=== PATIENT | female | born 1950 | race Caucasian/White ===

== ENCOUNTER 2022-07-27 11:09 | Outpatient (CLI) | payer MEDICARE, SELFPAY ==
--- NOTE | ~2022-07-27 | XR_ITS ---
Clinical Indication: Cough PA and lateral views of the chest: Comparison: None Findings: The lungs are clear, without evidence of focal consolidation or pleural effusion. Cardiome diastinal silhouette is within normal limits. Bones and soft tissues are unremarkable. Impression: Normal chest. Reviewed, dictated and finalized at location [] OLL CLERK Impression: Normal chest.
== END 2022-07-27 11:10 | disposition home or self-care (01) ==
LOC: ANHIMG 11:14
PROVIDERS: PCP Family Medicine; Visit Provider Physician Assistant
DX: R05.9 Cough, unspecified (principal)
CPT/HCPCS: 71046

== ENCOUNTER 2023-01-11 08:01 | Outpatient (CLI) | payer MEDICARE, SELFPAY ==
--- NOTE | 2023-01-11 08:47 | ECG_ITS ---
Measurements Intervals [place] Rate: 60 P: 62 OR: 163 QRS: 29 QRSD: 84 T: 48 QT: 398 QTc: 398 Interpretive Statements SINUS RHYTHM NO PREVIOUS ECG AVAILABLE FOR COMPARISON Electronically Signed On 01-11-2023 15:26:35 CDT by Anh Boyer M.D.
[2023-01-11 08:56] LABS: Basophils Percent Auto 0.1 % (0.2-1.2); Hematocrit 41.1 % (37.0-47.0); Hemoglobin 13.7 g/dL (12.0-15.0); Immature Granulocyte Absolute 0.04 K/mm3 (0.00-0.031); Immature Granulocyte Percent A 0.4 % (0-0.5); Lymphocytes Absolute Auto 1.59 K/mm3 (0.9-3.2); Lymphocytes Percent Auto 14.3 % (18.3-44.2); Mean Corpuscular HGB Conc 33.3 g/dl (32-36); Mean Corpuscular Hemoglobin 30.3 pg (26-34); Mean Corpuscular Volume 90.9 fl (80-100); Mean Platelet Volume 11.2 fl (7.4-10.4); Monocytes Absolute Auto 0.4 K/mm3 (0.1-0.6); Monocytes Percent Auto 3.7 % (2.6-8.5); Neutrophils Absolute Auto 9.1 K/mm3 (1.3-6.7); Neutrophils Percent Auto 81.5 % (45.5-73.1); Platelet Count Result 277 k/mm3 (150-375); Red Blood Count 4.52 M/mm3 (4.2-5.4); White Blood Count 11.1 K/mm3 (4.5-10.0)
[2023-01-11 09:06] LABS: Alanine Aminotransferase 21 U/L (6-35); Albumin Level 4.7 g/dL (3.5-5.1); Alkaline Phosphatase 62 U/L (38-126); Anion Gap 11 mmol/L (8-16); Aspartate Amino Transferase 24 U/L (14-36); Bilirubin,Total 0.9 mg/dL (0.2-1.3); Blood Urea Nitrogen 21 mg/dL (7-17); Calcium 9.5 mg/dL (8.4-10.2); Carbon Dioxide 20 mmol/L (22-30); Chloride 107 mmol/L (98-107); Estimated Glomerular Filt Rate > 60; Glucose 121 mg/dL (65-110); Potassium 4.3 mmol/L (3.4-5.0); Sodium 138 mmol/L (137-145)
[2023-01-11 09:23] LABS: Erythrocyte Sedimentation Rate 16 mm/hr (0-20)
[2023-01-11 09:35] LABS: Rheumatoid Factor < 12.0 IU/ML (<12)
[2023-01-11 09:42] LABS: Vitamin D 25 Hydroxy 37.4 ng/mL
[2023-01-11 16:43] LABS: Appearance Urine Clear (Clear); Bacteria Urine Rare /hpf; Bilirubin Urine Negative (Negative); Blood Urine Negative (Negative); Calcium Oxalate Crystals Urine Present /hpf; Color Urine Dark Yellow (Yellow); Glucose Urine UA Negative (Negative); Ketones Urine Trace mg/dL (Negative); Leukocyte Esterase Ur Trace LEU/UL (Negative); Nitrate Urine Negative (Negative); Non Pathogenic Casts 0-2; Protein Urine Negative (Negative); RBC Urine 0-2 /hpf (0-2); Specific Grav Ur 1.027 (1.001-1.035); Squamous Epithelial Cell Urine Occasional /hpf (Few); WBC Urine 0-5 /hpf
[2023-01-11 16:49] LABS: Add Urine Microscopic? YES
[2023-01-15 11:45] LABS: SS-A <1.0; SS-B <1.0
[2023-01-16 14:24] LABS: ANA Pattern Nuclear, Nucleolar; Anti Nuclear Antibody Titer 1:40 (Negative)
== END 2023-01-11 08:02 | disposition home or self-care (01) ==
PROVIDERS: PCP Family Medicine; Visit Provider Family Medicine
DX: Z01.818 Encounter for other preprocedural examination (principal); R09.1 Pleurisy; E55.9 Vitamin D deficiency, unspecified; N18.30 Chronic kidney disease, stage 3 unspecified; R53.83 Other fatigue; E78.5 Hyperlipidemia, unspecified; Z82.49 Family history of ischemic heart disease and other diseases of the circulatory system
CPT/HCPCS: 36415; 80053; 81001; 82306; 85025; 85652; 86038; 86039; 86235; 86430; 93005

== ENCOUNTER 2023-04-09 10:52 | Outpatient (CLI) | payer MEDICARE, SELFPAY ==
[2023-04-09 12:47] LABS: SARS-CoV-2 RNA PCR Negative (Negative)
== END 2023-04-09 10:53 | disposition home or self-care (01) ==
PROVIDERS: PCP Family Medicine; Visit Provider Family Medicine
DX: R50.9 Fever, unspecified (principal)
CPT/HCPCS: 87635

== ENCOUNTER 2023-04-17 13:57 | Outpatient (CLI) | payer MEDICARE, SELFPAY ==
--- NOTE | ~2023-04-17 | CT_ITS ---
EXAMINATION: CT abdomen pelvis w con INDICATION: Unspecified abdominal pain TECHNIQUE: Computed tomographic images of the abdomen and pelvis were obtained after the administrati on of 100 cc of Omnipaque 350 intravenous contrast. The dose-length product (DLP) was 362.92 mGy-cm. Automated exposure control and iterative reconstruction technique were employed. COMPARISON: Chest radiograph dated 07/27/2022 FINDINGS: There are multiple clustered nodules of the visualized lung bases. There are areas of bronc hial wall thickening. The heart size is normal. There are innumerable cysts of the liver which measur e up to 4.2 cm. The spleen, pancreas, gallbladder, and adrenal glands are normal. The kidneys are unr emarkable. No pathologically enlarged abdominal or pelvic lymph nodes are identified. No free intrape ritoneal gas or evidence of bowel obstruction. The appendix is normal. There is mild lumbar spondylos is. IMPRESSION: 1. No CT correlate for the patient's symptoms. 2. Multiple nodules of the visualized lung bases and bronchial wall thickening, most consistent with chronic infection. Reviewed, dictated and finalized at location L.
== END 2023-04-17 13:58 | disposition home or self-care (01) ==
PROVIDERS: PCP Family Medicine; Visit Provider Physician Assistant Medical
DX: R10.9 Unspecified abdominal pain (principal); R91.8 Other nonspecific abnormal finding of lung field
CPT/HCPCS: 74177; Q9967

== ENCOUNTER 2023-05-14 09:59 | Outpatient (CLI) | payer MEDICARE, SELFPAY ==
--- NOTE | ~2023-05-14 | CT_ITS ---
EXAMINATION: CT diagnostic chest wo con DATE: 05/14/2023 10:34 INDICATION: Solitary pulmonary nodule TECHNIQUE: Computed tomography (CT) of the chest was performed without intravenous contrast. Automate d exposure control and iterative reconstruction technique were employed. Exam dose: 79.06 mGy-cm tot al exam DLP. COMPARISON: 07/27/2022 PA and lateral chest 04/17/2022 CT abdomen pelvis FINDINGS: There are extensive nodular pulmonary densities involving primarily the lower lobes, more n umerous on the left, particularly in the dependent lung richard, many with very high attenuation. There are scattered areas of focal scarring including the anteromedial middle lobe and lingula, anter olateral base of the right lower lobe. There is little interval change since 04/17/2023. Otherwise no pulmonary consolidation is noted. Normal heart size. Coronary artery calcification. Thoracic aortic diameter is within normal range. Mi nimal thoracic aortic calcification. No hilar or mediastinal mass lesion or lymphadenopathy is detected. Numerous cysts are scattered throughout the liver. Normal adrenal glands. Included skeletal structures are unremarkable, without evidence of osteolytic or osteoblastic lesions . IMPRESSION: Extensive bilateral pulmonary nodular densities involving primarily the lower lobes, lef t greater than right, many with calcification, suggesting infectious process, old granulomatous disea se Multifocal pulmonary scarring Numerous hepatic cysts Coronary artery disease Reviewed, dictated and finalized at Location A. Reviewed, dictated and finalized at location B. IMPRESSION: Extensive bilateral pulmonary nodular densities involving primaril y the lower lobes, left greater than right, many with calcification, suggesting infectious process, old granulomatous disease Multifocal pulmonary scarring Numerous hepatic cysts Coronary artery disease
== END 2023-05-14 10:00 | disposition home or self-care (01) ==
PROVIDERS: PCP Family Medicine; Visit Provider Physician Assistant
DX: R91.1 Solitary pulmonary nodule (principal); J47.9 Bronchiectasis, uncomplicated; I25.10 Atherosclerotic heart disease of native coronary artery without angina pectoris; R91.8 Other nonspecific abnormal finding of lung field; J98.4 Other disorders of lung; K76.89 Other specified diseases of liver
CPT/HCPCS: 71250

== ENCOUNTER 2023-05-30 08:46 | Outpatient (CLI) | payer MEDICARE, SELFPAY ==
--- NOTE | 2023-06-15 17:52 | WPDSLEEPSTUD ---
Sleep Study Date of Study: 05/30/23 Ordering Provider: JAUN Garcia Interpreting Physician: Safia Echeverria MD Sleep Study Type: Polysomnogram Height: 1.65 m Weight: 67.132 kg Body Mass Index: 24.6 Neck Circumference (inches): 14 Pinson: 6 Reason for Sleep Study Hypersomnolence; this was performed with a REM Behavior Montage as the patient reported to the video technician that she possibly acts out her dreams Sleep History Miguelina Cowan is a 72-year-old woman with hypersomnolence. She rarely awakens from sleep short of breath. She occasionally wakes at night with heartburn, belching or coughing.??She frequently snores, and frequently snores loudly enough that others complain. She occasionally has trouble sleeping when she has a cold. She never wakes up gasping for breath during the night. She occasionally has breathing problems at night. She rarely sweats excessively at night. She rarely notices her heart pounding or beating irregularly during the night. She rarely falls asleep during the day. She never falls asleep involuntarily, never falls asleep while driving. She never experiences loss of muscle tone with strong emotion. She never feels paralyzed on waking or falling asleep. She rarely experiences vivid dreams upon waking or falling asleep. She feels afraid of going to sleep. She occasionally has nightmares. She rarely recalls her dreams. She rarely has thoughts racing through her mind. She rarely feels sad or depressed. She rarely feels anxiety. She rarely notices parts of her body jerk. She occasionally kicks during the night. She rarely feels crawling or aching feelings in her legs. She rarely feels leg pain at night. She rarely has morning jaw pain, and occasionally grinds her teeth at night. She rarely feels bothered by pain during the day, rarely awakened by pain during the night. She rarely wakes up feeling stiff in the morning, rarely wakes feeling sore or achy in the morning. She occasionally awakens with pain in her neck, spine, or joints. She takes antacids regularly. Normal bedtime is be to wean 10:30 p.m. and 11:00 p.m., falling asleep within 10 minutes. She wakes up between 2 and 3 times during the night. during these awakenings, she may go to the bathroom. It takes her about 5 minutes to return to sleep. She reports getting Between 8 and 9 hours of sleep per night. Her wake time is 8:00 a.m. She keeps the same schedule on weekends. she rarely takes naps. A short nap lasting 10-15 minutes may be refreshing. She feels good most mornings when she awakens. Habits:??Tobacco: Never Caffeine: 2-3 cups a day. Alcohol: once a week Recreational substances: none PMFSH Past Medical History Medical History Anxiety Bladder infection Chronic renal insufficiency, stage III (moderate) Endometriosis HLD (hyperlipidemia) Pneumonia (~2017) Vitamin D deficiency Wears hearing aid in both ears Surgical History Surgical History History of section x 2 History of laparoscopy History of third molar tooth extraction History of total abdominal hysterectomy Family History Family History Mother Hypertension CHF (congestive heart failure) Father CHF (congestive heart failure) Grandparent Carcinoma of colon Social History Social History Smoking status: Never smoker Second hand tobacco smoke exposure: No Alcohol intake: never Substance use: never Substance use type: does not use Lack of Transportation: No Lack of Food: Never True Current Housing: I Have Housing Concerned About Future Housing: No Difficulty Paying Gas/Electric Bills: No Difficulty Paying for Meds: No Currently Unemployed: No Education: Decline to Answer Diffic
[2023-06-18 08:47] VITALS: BMI 24.6
== END 2023-05-31 07:01 | disposition home or self-care (01) ==
PROVIDERS: PCP Family Medicine; Visit Provider Physician Assistant
DX: G47.10 Hypersomnia, unspecified (principal)
CPT/HCPCS: 95810

== ENCOUNTER 2023-06-22 09:16 | Outpatient (CLI) | payer MEDICARE, SELFPAY ==
[2023-06-22 10:45] LABS: Basophils Absolute Auto 0.1 K/mm3 (0.0-0.1); Basophils Percent Auto 1.3 % (0.2-1.2); Eosinophils Absolute Auto 0.3 K/mm3 (0-0.3); Eosinophils Percent Auto 4.4 % (0-4.4); Hematocrit 39.4 % (37.0-47.0); Hemoglobin 12.7 g/dL (12.0-15.0); Immature Granulocyte Absolute 0.02 K/mm3 (0.00-0.031); Immature Granulocyte Percent A 0.3 % (0-0.5); Lymphocytes Absolute Auto 2.14 K/mm3 (0.9-3.2); Lymphocytes Percent Auto 31.1 % (18.3-44.2); Mean Corpuscular HGB Conc 32.2 g/dl (32-36); Mean Corpuscular Hemoglobin 29.7 pg (26-34); Mean Corpuscular Volume 92.3 fl (80-100); Mean Platelet Volume 11.2 fl (7.4-10.4); Monocytes Absolute Auto 0.4 K/mm3 (0.1-0.6); Monocytes Percent Auto 6.1 % (2.6-8.5); Neutrophils Absolute Auto 3.9 K/mm3 (1.3-6.7); Neutrophils Percent Auto 56.8 % (45.5-73.1); Platelet Count Result 271 k/mm3 (150-375); Red Blood Count 4.27 M/mm3 (4.2-5.4); Red Cell Distribution Width 13.3 % (11.5-14.5); White Blood Count 6.9 K/mm3 (4.5-10.0)
[2023-06-22 11:13] LABS: Immunoglobulin A 206 mg/dL (70-400); Immunoglobulin M 55 mg/dL (40-230)
[2023-06-22 11:21] LABS: Free T4 Free Thyroxine 1.14 ng/mL (0.78-2.19)
[2023-06-25 21:25] LABS: Anti Cyclic Citrullinated Pept <16 Units (<20)
[2023-06-27 02:25] LABS: ANA Cascade Screen Negative (Negative)
[2023-06-27 03:43] LABS: ANCA Screen Negative (Negative)
[2023-06-27 14:28] LABS: NIL 0.04 IU/mL; Quantiferon TB Plus, 1T NEGATIVE (NEGATIVE); TB2-NIL 0.11 IU/mL
[2023-06-27 20:07] LABS: Aspergillus Fumigatus K/UL <0.10 (<0.10); Conventional Class 0 (0)
[2023-06-27 20:09] LABS: Immunoglobulin E 116 kU/L (<=114)
== END 2023-06-22 09:17 | disposition home or self-care (01) ==
PROVIDERS: PCP Family Medicine; Visit Provider Internal Medicine Pulmonary Disease
DX: J84.9 Interstitial pulmonary disease, unspecified (principal); J44.9 Chronic obstructive pulmonary disease, unspecified; J47.9 Bronchiectasis, uncomplicated; R06.09 Other forms of dyspnea; G47.10 Hypersomnia, unspecified
CPT/HCPCS: 36415; 82784; 82785; 84439; 84443; 85025; 86003; 86036; 86038; 86200; 86225; 86235; 86331; 86364; 86480; 86606; 86609

== ENCOUNTER 2023-06-25 09:43 | Outpatient (CLI) | payer MEDICARE, SELFPAY ==
--- NOTE | 2023-06-25 12:22 | WPDSIXMINUTE ---
Six Minute Walk Procedure Procedure Performed Pulmonary Stress Test (6 min walk) Six Minute Walk Six Minute Walk: This is a 6 minute walk test. The test was performed and interpreted in accordance with the 2014 ERS/ATS task force guidelines. Findings: The patient's resting room air oxygen saturation measured by pulse oximetry was 95% and heart rate was 71 bpm. Patient ambulated for 366 meters and oxygen saturation remained 93 to 95%. Heart rate at the end of the study was 100 bpm. The patient did not qualify for supplemental oxygen at rest or with ambulation. There are no prior studies for comparison.
--- NOTE | 2023-06-25 12:22 | WPDPFTINT ---
PFT Procedure Performed PFT Procedure Performed Spirometry with Pre/Post Bronchodilator Plethysmography (Lung Vol) Diffusing Cap (DLCO) Flow Vol Loop PFT Interpretation This is a pulmonary function test with pre and post-bronchodilator spirometry, plethysmography and diffusing capacity. The test was performed and results interpreted in accordance with the 2019 and 2005 ATS/ERS Task Force guidelines respectively using the Global Lung Function Initiative-2012 reference equations. Patient demonstrated good effort and cooperation. Reproducibility criteria were met. The quality of the pre bronchodilator spirometry maneuver was Grade A and post bronchodilator spirometry maneuver was Grade A. Findings: Spirometry: The contour the inspiratory and expiratory flow tracing are normal. The pre bronchodilator FVC is 2.66 L, 87% predicted. The pre bronchodilator FEV1 is 2.08 L, 88% predicted. The pre bronchodilator FEV1: FVC ratio 78%. The post bronchodilator FVC is 2.85 L, representing a 7% increase. The post bronchodilator FEV1 is 2.22 L, representing a 6% increase. The post bronchodilator FEV1: FVC ratio 78%. Plethysmography: The total lung capacity is 5.63 L, 105% predicted. The functional residual capacity is 3.82 L, 124% predicted. The residual volume is 2.97 L, 129% predicted. Diffusing capacity: The diffusing capacity unadjusted for hemoglobin and carboxyhemoglobin is 14.9, 70% predicted. The diffusing capacity adjusted for alveolar volume is 3.66, 87% predicted. Impression: The spirometry is normal without evidence of an obstructive abnormality. There is no significant improvement after inhaling a single dose of albuterol. The lung volumes are normal. The diffusing capacity is normal. There are no prior studies for comparison
== END 2023-06-25 09:44 | disposition home or self-care (01) ==
PROVIDERS: PCP Family Medicine; Visit Provider Internal Medicine Pulmonary Disease
DX: J47.9 Bronchiectasis, uncomplicated (principal)
CPT/HCPCS: 94060; 94618; 94726; 94729

== ENCOUNTER 2023-08-03 07:43 | Outpatient (CLI) | payer MEDICARE, SELFPAY ==
--- NOTE | ~2023-08-03 | XR_ITS ---
Left foot Technique: AP, oblique, and lateral views were obtained. Clinical History: Pain Findings: No acute fracture or dislocation is seen. Osseous alignment is anatomic. Joint spaces are p reserved without erosive or degenerative change. Soft tissues are unremarkable. Impression: Unremarkable left foot radiographs. Reviewed, dictated and finalized at location . LOPMENT LEAD Impression: Unremarkable left foot radiographs.
--- NOTE | ~2023-08-03 | XR_ITS ---
Bilateral Hands Technique: Bilateral PA, oblique, and lateral views, and ball-catcher's view were obtained. Clinical History: Chronic arthritis Findings: No acute fracture or dislocation is seen. Osseous alignment is anatomic and there are minim al scattered degenerative changes in the bilateral interphalangeal joints and at the right first MCP joint.. Soft tissues are unremarkable. Impression: Minimal scattered degenerative changes, as above. Reviewed, dictated and finalized at location M. SCOPE TECHNICIAN Impression: Minimal scattered degenerative changes, as above.
--- NOTE | ~2023-08-03 | XR_ITS ---
Right foot Technique: AP, oblique, and lateral views were obtained. Clinical History: Pain Findings: No acute fracture or dislocation is seen. There is presumed prior osteotomy of the first me tatarsal with 2 orthopedic screws present. Hallux valgus noted. Joint spaces are preserved without er osive or degenerative change. Soft tissues are unremarkable. Impression: No acute abnormality. Presumed prior osteotomy of the first metatarsal, with 2 orthopedic screws present. Correlate with mn dical history. Hallux valgus. Reviewed, dictated and finalized at location M. OCK TESTER Impression: No acute abnormality. Presumed prior osteotomy of the first metatarsal, with 2 orthopedic screws pres ent. Correlate with medical history. Hallux valgus.
--- NOTE | ~2023-08-03 | XR_ITS ---
Thoracic spine: Clinical Indication: Back pain AP and lateral views were performed. No fracture is seen. There is normal alignment of the vertebrae. The intervertebral disc spaces appe ar normal. Paravertebral soft tissues appear normal. Impression: No significant abnormalities noted. Reviewed, dictated and finalized at [facility]. TING ROLLER POLISHER Impression: No significant abnormalities noted.
--- NOTE | ~2023-08-03 | XR_ITS ---
Cervical Spine: AP, lateral, open-mouth views Clinical History: Pain Findings: There is mild reversal of the normal cervical lordosis. No fracture seen. There is 3 mm ant erolisthesis of C3 over C4. There is 2 mm retrolisthesis of C5 over C6. There is advanced degenerativ e disc narrowing at C5-C6. There is moderate degenerative disc narrowing at C6-C7. Pre-vertebral soft tissues are unremarkable. Impression: 3 mm anterolisthesis of C3 over C4. 2 mm retrolisthesis of C5 over C6. Degenerative disc changes C5-C6 and C6-C7, as detailed above. Reviewed, dictated and finalized at location M. K SALES REPRESENTATIVE Impression: 3 mm anterolisthesis of C3 over C4. 2 mm retrolisthesis of C5 over C6. Degenerative disc changes C5-C6 and C6-C7, as detailed above.
[2023-08-03 08:23] LABS: Alanine Aminotransferase 17 U/L (6-35); Albumin Level 4.3 g/dL (3.5-5.1); Alkaline Phosphatase 71 U/L (38-126); Anion Gap 8 mmol/L (8-16); Aspartate Amino Transferase 26 U/L (14-36); Bilirubin,Total 0.9 mg/dL (0.2-1.3); Blood Urea Nitrogen 20 mg/dL (7-17); Calcium 9.4 mg/dL (8.4-10.2); Carbon Dioxide 26 mmol/L (22-30); Chloride 107 mmol/L (98-107); Cholesterol 234 mg/dL (0-200); Estimated Glomerular Filt Rate 55; Glucose 88 mg/dL (65-110); HDL Direct 74 mg/dL; Sodium 141 mmol/L (137-145); Triglycerides 127 mg/dL (<150)
[2023-08-03 08:34] LABS: LDL Cholesterol Direct 106 mg/dL
[2023-08-03 09:32] LABS: Hemoglobin A1C 5.6 % (<5.7)
== END 2023-08-03 07:44 | disposition home or self-care (01) ==
LOC: ANHLAB 07:47
PROVIDERS: PCP Family Medicine; Visit Provider Family Medicine
DX: M54.9 Dorsalgia, unspecified (principal); M43.12 Spondylolisthesis, cervical region; M50.322 Other cervical disc degeneration at C5-C6 level; M50.323 Other cervical disc degeneration at C6-C7 level; M20.11 Hallux valgus (acquired), right foot; M19.042 Primary osteoarthritis, left hand; M19.041 Primary osteoarthritis, right hand; E78.2 Mixed hyperlipidemia; R73.03 Prediabetes; N18.30 Chronic kidney disease, stage 3 unspecified; R76.8 Other specified abnormal immunological findings in serum
CPT/HCPCS: 36415; 72050; 72072; 73130; 73630; 80053; 80061; 83036

== ENCOUNTER 2023-09-12 11:29 | Outpatient (CLI) | payer MEDICARE, SELFPAY ==
--- NOTE | ~2023-09-12 | XR_ITS ---
Clinical Indication: Wheezing, Covid PA and lateral views of the chest: Comparison: 07/27/2022 Findings: The lungs are clear, without evidence of focal consolidation or pleural effusion. Cardiome diastinal silhouette is within normal limits. Bones and soft tissues are unremarkable. Impression: Normal chest. Reviewed, dictated and finalized at [facility]. GER PRODUCE Impression: Normal chest.
== END 2023-09-12 11:30 | disposition home or self-care (01) ==
LOC: ANHLAB 11:32 → ANHIMG 11:32
PROVIDERS: PCP Family Medicine; Visit Provider Physician Assistant Medical
DX: R06.2 Wheezing (principal)
CPT/HCPCS: 71046

== ENCOUNTER 2023-10-01 18:20 | Emergency (ER) | payer MEDICARE, SELFPAY ==
--- NOTE | ~2023-10-01 | CT_ITS ---
EXAMINATION: CT abdomen pelvis w con DATE: 10/01/2023 23:42 INDICATION: ab pain TECHNIQUE: Computed tomography (CT) of the abdomen and pelvis was performed with 100 mL Omnipaque-350 intravenous contrast. Automated exposure control and iterative reconstruction technique were employe d. The dose-length product was 467.82 mGy-cm. COMPARISON: 04/17/2023. FINDINGS: Lower thorax: Multiple pulmonary nodules, tree-in-bud opacities, centrilobular nodules, bilateral med ial atelectasis/scar, and bronchiectasis in the lung bases. Liver: Innumerable hepatic cysts. Biliary/Gallbladder: Gallbladder is normal. No bile duct dilation. Pancreas: Mild atrophy Spleen: Normal. Adrenals:No mass. Kidneys: No suspicious mass, obstructing stone, or hydronephrosis. GI tract: Mild distal esophageal and gastric wall edema No small or large bowel dilation. Normal appe ndix. Mesentery/Peritoneum: No ascites, mass, or free air. Retroperitoneum: No mass. Atherosclerotic abdominal aortic and/or arterial calcifications. Pelvis: Pelvic organs are within normal limits. Soft Tissues: Soft tissues and body wall unremarkable. Bones: No acute osseous finding. IMPRESSION: Chronic atypical infection in the lung bases. Mild esophagitis/gastritis. Otherwise no acute abdominal pelvic process detected. Reviewed, dictated and finalized at location K. EMS PROGRAM MANAGER
[2023-10-01 18:22] VITALS: BP 155/81; PULSE 77; RESP 20; TEMP 36.4; O2SAT 97
[2023-10-01 23:02] VITALS: BP 138/78; PULSE 70; RESP 20; O2SAT 100
[2023-10-01 23:04] LABS: Basophils Absolute Auto 0.1 K/mm3 (0.0-0.1); Basophils Percent Auto 1.4 % (0.2-1.2); Eosinophils Absolute Auto 0.1 K/mm3 (0-0.3); Eosinophils Percent Auto 1.2 % (0-4.4); Hematocrit 39.2 % (37.0-47.0); Hemoglobin 12.4 g/dL (12.0-15.0); Immature Granulocyte Absolute 0.02 K/mm3 (0.00-0.031); Immature Granulocyte Percent A 0.2 % (0-0.5); Lymphocytes Absolute Auto 2.07 K/mm3 (0.9-3.2); Lymphocytes Percent Auto 24.5 % (18.3-44.2); Mean Corpuscular HGB Conc 31.6 g/dl (32-36); Mean Corpuscular Hemoglobin 28.5 pg (26-34); Mean Corpuscular Volume 90.1 fl (80-100); Mean Platelet Volume 10.9 fl (7.4-10.4); Monocytes Absolute Auto 0.6 K/mm3 (0.1-0.6); Monocytes Percent Auto 6.8 % (2.6-8.5); Neutrophils Absolute Auto 5.6 K/mm3 (1.3-6.7); Neutrophils Percent Auto 65.9 % (45.5-73.1); Platelet Count Result 289 k/mm3 (150-375); Red Blood Count 4.35 M/mm3 (4.2-5.4); Red Cell Distribution Width 13.8 % (11.5-14.5); White Blood Count 8.4 K/mm3 (4.5-10.0)
[2023-10-01 23:14] LABS: Alanine Aminotransferase 21 U/L (6-35); Albumin Level 4.3 g/dL (3.5-5.1); Alkaline Phosphatase 69 U/L (38-126); Anion Gap 6 mmol/L (8-16); Aspartate Amino Transferase 36 U/L (14-36); Blood Urea Nitrogen 26 mg/dL (7-17); Calcium 9.6 mg/dL (8.4-10.2); Carbon Dioxide 23 mmol/L (22-30); Chloride 108 mmol/L (98-107); Estimated CRCL calculation 34 ml/min; Estimated Glomerular Filt Rate 40; Glucose 102 mg/dL (65-110); Lipase 139 U/L (23-300); Potassium 3.9 mmol/L (3.4-5.0); Sodium 137 mmol/L (137-145)
--- NOTE | 2023-10-02 00:09 | ED.ABDPAIN ---
HPI - Abdominal Pain General Chief Complaint: Abdominal Pain Stated Complaint: abd pain Time Seen by Provider: 10/01/23 22:58 History of Present Illness HPI narrative: 72-year-old female history of GERD presented to the emergency department for evaluation of upper abdominal burning has been ongoing for the last week. Patient days take Tums but states she had no improvement with this. Patient does have history of lupus and does take hydroxychloroquine. Related Data Allergies Allergy/AdvReac Type Severity Reaction Status Date / Time latex Allergy Mild Rash Verified 10/01/23 18:21 levofloxacin [From Levaquin] Allergy Mild Unknown Verified 10/01/23 18:21 Review of Systems Review of Systems: All systems reviewed & are unremarkable except as noted in HPI and below PMFSH Past Medical History Medical History Anxiety Bladder infection Chronic renal insufficiency, stage III (moderate) Endometriosis HLD (hyperlipidemia) Pneumonia (~2017) Undifferentiated connective tissue disease Vitamin D deficiency Wears hearing aid in both ears Surgical History Surgical History History of section x 2 History of laparoscopy History of third molar tooth extraction History of total abdominal hysterectomy Family History Family History Mother Hypertension CHF (congestive heart failure) Father CHF (congestive heart failure) Grandparent Carcinoma of colon Social History Social History Smoking status: Never smoker Second hand tobacco smoke exposure: No Alcohol intake: never Substance use: never Substance use type: does not use Lack of Transportation: No Lack of Food: Never True Current Housing: I Have Housing Concerned About Future Housing: No Difficulty Paying Gas/Electric Bills: No Difficulty Paying for Meds: No Currently Unemployed: No Education: Decline to Answer Difficulty w/ Childcare or Family Care: No Living arrangements: with family Occupation/Education: retired Gender identity (if verbalized by the patient): Female Spiritual care concerns: No Agree to blood products: Yes Exam Narrative: APPEARANCE: Well appearing, no pain, no distress, well-nourished. HEAD: normocephalic, atraumatic. EYES: PERRLA/EOMI, conjunctivae clear. NOSE: Normal no drainage EARS:TMS clear with good light reflex. THROAT: Pharynx clear, no exudate. NECK: Supple. No adenopathy, no masses. RESPIRATORY: Airway patent, respirations nonlabored. Clear to auscultation bilaterally, no rales, rhonchi, wheezing. CARDIOVASCULAR: Regular rate and rhythm without murmurs rubs or gallops. ABDOMINAL: epigastric tenderness to palpation MUSCULOSKELETAL: Moves all extremities. Strength/ROM intact, No edema, No calf tenderness. NEURO: Alert. Cranial nerves II through XII intact. grossly intact Course Course Emergency Course: 72-year-old female presents to the emergency department for evaluation of epigastric pain. Patient did have reproducible epigastric tenderness to palpation. Patient is afebrile with no leukocytosis and a stable hemoglobin of 12.4. Patient has no acute abnormalities on her CMP other than a mildly elevated creatinine. Patient has no elevation in T bili AST ALT or alk-phos. Patient's lipase was normal. CT scan did show evidence of esophagitis/gastritis. Patient was treated with GI cocktail And IV fluids. Patient reported only mild improvement with GI cocktail. UA did have 11-20 whites with no bacteria and no nitrates, urine culture was ordered. CT scan showed a chronic infection of the lower lung bases, gastritis/ esophagitis but no other acute findings. Vital Signs Vital signs: Vital Signs Temperature 97.5 F L 10/01/23 18
[2023-10-02] MEDS: SODIUM CHLORIDE 0.9% IV 1,000 ML 999 ML IV CONT (00:32)
[2023-10-02] MEDS: BELLADONNA ALK/PHENOB ELIX 10 ML, MAG HYDROX/ALUMINUM HYD/SIMETH 30 ML, LIDOCAINE HCL 2... PO (00:33)
[2023-10-02 00:40] VITALS: PULSE 78; RESP 15; O2SAT 98
[2023-10-02 01:07] LABS: Appearance Urine Cloudy (Clear); Bacteria Urine None Seen /hpf; Bilirubin Urine Negative (Negative); Blood Urine Negative (Negative); Color Urine Dark Yellow (Yellow); Glucose Urine UA Negative (Negative); Hyaline Casts Urine Present /lpf; Ketones Urine 2+ mg/dL (Negative); Leukocyte Esterase Ur Negative LEU/UL (Negative); Mucus Urine Present /lpf; Need Manual Microscopic Reviewed; Nitrate Urine Negative (Negative); Non Pathogenic Casts >20; Protein Urine Trace mg/dL (Negative); RBC Urine 0-2 /hpf (0-2); Specific Grav Ur 1.042 (1.001-1.035); Squamous Epithelial Cell Urine Moderate /hpf (Few)
[2023-10-02 01:08] LABS: Add Urine Microscopic? YES
== END 2023-10-02 01:38 | disposition home or self-care (01) ==
PROVIDERS: Emergency Provider Emergency Medicine; PCP Family Medicine
DX: R10.13 Epigastric pain (principal); N18.30 Chronic kidney disease, stage 3 unspecified; E78.5 Hyperlipidemia, unspecified; E55.9 Vitamin D deficiency, unspecified; Z87.01 Personal history of pneumonia (recurrent); Z87.440 Personal history of urinary (tract) infections; Z90.710 Acquired absence of both cervix and uterus; K29.70 Gastritis, unspecified, without bleeding; K20.90 Esophagitis, unspecified without bleeding
CPT/HCPCS: 36415; 74177; 80053; 81001; 83690; 85025; 87077; 87086; 87186; 96360; 99284; A9270; J7030; Q9967

== ENCOUNTER 2023-10-23 01:02 | Day surgery (SDC) | payer MEDICARE, SELFPAY ==
[2023-10-10 11:34] VITALS: BMI 24.2
--- NOTE | 2023-10-19 10:02 | SUR.PREOP ---
Patient called regarding upcoming procedure. Reviewed preop instructions, appointment times, and procedure prep.
[2023-10-23 06:20] VITALS: BP 111/75; PULSE 72; TEMP 36.4; O2SAT 100; BMI 22.8
[2023-10-23] MEDS: LACTATED RINGERS 1,000 ML 150 ML IV CONT (06:24)
--- NOTE | 2023-10-23 07:03 | WPDANESEPPF ---
Anes - Initial Pre Proc Eval Procedure: Operation Date: 10/23/23 07:30 Proposed Procedures p Esophagogastroduodenoscopy & Screening Colonoscopy - Roberth Lopez MD Date/Time: 10/23/23 07:03 Surgeon: Roberth Lopez MD Pre Op Diagnosis: neoplasm screening,Gastritis,Esophagitis Patient Data Age: 73 Gender: F Height: 1.68 m Weight: 64.4 kg Last Vital Signs Temp 36.4 C L 10/23/23 06:20 Pulse 72 10/23/23 06:20 BP 111/75 10/23/23 06:20 Pulse Ox 100 10/23/23 06:20 O2 Del Method Room Air 10/23/23 06:20 Allergies Allergy/AdvReac Type Severity Reaction Status Date / Time latex Allergy Mild Rash Verified 10/23/23 06:19 levofloxacin [From Levaquin] Allergy Mild Unknown Verified 10/23/23 06:19 hydroxychloroquine AdvReac Other Verified 10/23/23 06:19 Home Medications Medication Instructions Recorded Confirmed Type ergocalciferol (vitamin D2) 1,250 1,250 mcg PO WEEKLY #12 caps 09/29/22 10/10/23 Rx mcg (50,000 unit) capsule valacyclovir 500 mg tablet 250 mg PO DAILY #90 tabs 01/28/23 10/10/23 Rx omeprazole 40 mg capsule,delayed 40 mg PO DAILY #30 caps 05/30/23 10/10/23 Rx release Patient hx anesthesia problems: none Family hx anesthesia problems: none Results Review: All pre-operative results and documents have been reviewed as part of the pre-operative evaluation. [facility] Past Medical History Medical History (Updated 10/23/23 @ 07:04 by Tyrone Gary DO) Anxiety Bladder infection Chronic renal insufficiency, stage III (moderate) Endometriosis HLD (hyperlipidemia) Pneumonia (~2017) Rheumatoid arthritis SLE (systemic lupus erythematosus related syndrome) Undifferentiated connective tissue disease Vitamin D deficiency Wears hearing aid in both ears Surgical History Surgical History History of section x 2 History of laparoscopy History of third molar tooth extraction History of total abdominal hysterectomy Family History Family History Mother Hypertension CHF (congestive heart failure) Father CHF (congestive heart failure) Grandparent Carcinoma of colon Social History Social History Smoking status: Never smoker Second hand tobacco smoke exposure: No Alcohol intake: never Substance use: never Substance use type: does not use Lack of Transportation: No Lack of Food: Never True Current Housing: I Have Housing Concerned About Future Housing: No Difficulty Paying Gas/Electric Bills: No Difficulty Paying for Meds: No Currently Unemployed: No Education: Decline to Answer Difficulty w/ Childcare or Family Care: No Living arrangements: with family Additional living arrangements comments: [place]- [phone] Occupation/Education: retired Gender identity (if verbalized by the patient): Female Spiritual care concerns: No Agree to blood products: Yes Anes - Eval Final PreProcedure Day of Procedure 10/23/23 07:03 Patient weight: normal Heart: regular rate and rhythm Lungs: clear to auscultation and normal air movement Airway: Mallampati scale class II Neurological: alert and oriented Last oral intake: >/= 8 hours ASA classification: III Emergent: no Anesthetic plan: proceed Anesthesia type and monitoring: general GIVS and standard monitoring Results Review: All pre-operative results and documents have been reviewed as part of the pre-operative evaluation. Informed Consent: The patient's anesthetic plan and its attendant risks and benefits were discussed with the patient/family/POA. Questions were solicited and answers provided to the satisfaction of the patient/family/POA.
--- NOTE | 2023-10-23 07:24 | PM.HPGS ---
History of Present Illness History of Present Illness Consent: Risks, benefits, and alternatives have been discussed and questions answered. Patient agrees to proceed with procedure. Chief complaint: neoplasm screening,Gastritis,Esophagitis Narrative: Miguelina Cowan is a 73 year old female here with burning sensation, she had CT scan that showed Mild esophagitis/gastritis, better now with omeprazole. Never had EGD, last colonoscopy more than 10 years ago Review of Systems Review of Systems: All systems reviewed & are unremarkable except as noted in HPI and below PMFSH Past Medical History Medical History (Updated 10/23/23 @ 07:26 by Roberth Lopez MD) Anxiety Bladder infection Chronic renal insufficiency, stage III (moderate) Endometriosis GERD (gastroesophageal reflux disease) HLD (hyperlipidemia) Pneumonia (~2017) Rheumatoid arthritis SLE (systemic lupus erythematosus related syndrome) Undifferentiated connective tissue disease Vitamin D deficiency Wears hearing aid in both ears Surgical History Surgical History History of section x 2 History of laparoscopy History of third molar tooth extraction History of total abdominal hysterectomy Family History Family History Mother Hypertension CHF (congestive heart failure) Father CHF (congestive heart failure) Grandparent Carcinoma of colon Social History Social History Smoking status: Never smoker Second hand tobacco smoke exposure: No Alcohol intake: never Substance use: never Substance use type: does not use Lack of Transportation: No Lack of Food: Never True Current Housing: I Have Housing Concerned About Future Housing: No Difficulty Paying Gas/Electric Bills: No Difficulty Paying for Meds: No Currently Unemployed: No Education: Decline to Answer Difficulty w/ Childcare or Family Care: No Living arrangements: with family Additional living arrangements comments: [facility]- [phone] Occupation/Education: retired Gender identity (if verbalized by the patient): Female Spiritual care concerns: No Agree to blood products: Yes Meds Home Medications and Allergies Home Medications Medication Instructions Recorded Confirmed Type ergocalciferol (vitamin D2) 1,250 1,250 mcg PO WEEKLY #12 caps 09/29/22 10/10/23 Rx mcg (50,000 unit) capsule valacyclovir 500 mg tablet 250 mg PO DAILY #90 tabs 01/28/23 10/10/23 Rx omeprazole 40 mg capsule,delayed 40 mg PO DAILY #30 caps 05/30/23 10/10/23 Rx release Allergies Allergy/AdvReac Type Severity Reaction Status Date / Time latex Allergy Mild Rash Verified 10/23/23 06:19 levofloxacin [From Levaquin] Allergy Mild Unknown Verified 10/23/23 06:19 hydroxychloroquine AdvReac Other Verified 10/23/23 06:19 Vital Signs Vital Signs - 24 hr 10/23/23 06:20 Temperature 97.5 F L Pulse Rate 72 Blood Pressure 111/75 Pulse Oximetry 100 Oxygen Delivery Room Air Exam Const: General: comfortable and no acute distress HENMT: Face/Nose/Sinus: Normal nares present Eyes: General: appearance normal, both eyes and all related structures Neck: Neck: no JVD Resp: Auscultation: clear to auscultation bilaterally Cardio: Rate: regular rate Rhythm: regular rhythm GI: Inspection: non-distended GI Palp: Yes Soft to palpation Skin: General skin exam: normal color Neuro: General: gait normal Speech: normal speech Extrem: General: normal to inspection Psych: Mental Status: mental status grossly normal Assessment and Plan Assessment and plan (1) Colon cancer screening: Code(s): Z12.11 - Encounter for screening for malignant neoplasm of colon Status: Acute Assessment and Plan: colonoscopy (2) GERD (gastroesophageal reflux dise
[2023-10-23] MEDS: BENZOCAINE (*SP) 60 ML SPRAY CAN (HURRICAINE) 1 SPRAY MUCOUS MEM (07:32)
--- NOTE | 2023-10-23 07:43 | SUR.OPER ---
EGD: [id number] COLON: Start 739
[2023-10-23 07:51] VITALS: BP 124/74; PULSE 88; RESP 21; O2SAT 100
[2023-10-23 08:01] VITALS: BP 121/65; PULSE 88; RESP 23; O2SAT 100
[2023-10-23 08:11] VITALS: BP 138/74; PULSE 85; RESP 17; O2SAT 100
== END 2023-10-23 08:26 | disposition home or self-care (01) ==
PROVIDERS: PCP Family Medicine; Visit Provider Internal Medicine Gastroenterology
PROC: 0DJ08ZZ Inspection of Upper Intestinal Tract, Via Natural or Artificial Opening Endoscopic (ICD-10-PCS; CPT 43235; principal; 2023-10-23 07:30)
DX: Z12.11 Encounter for screening for malignant neoplasm of colon (principal); K64.8 Other hemorrhoids; K29.50 Unspecified chronic gastritis without bleeding; K21.9 Gastro-esophageal reflux disease without esophagitis; E78.5 Hyperlipidemia, unspecified; E55.9 Vitamin D deficiency, unspecified; F41.9 Anxiety disorder, unspecified; N80.9 Endometriosis, unspecified; N18.30 Chronic kidney disease, stage 3 unspecified; M32.9 Systemic lupus erythematosus, unspecified; Z98.890 Other specified postprocedural states; Z82.49 Family history of ischemic heart disease and other diseases of the circulatory system; Z80.0 Family history of malignant neoplasm of digestive organs
CPT/HCPCS: 43239; G0105; 88305; J1596; J7120

== ENCOUNTER 2023-11-01 12:52 | Outpatient (CLI) | payer MEDICARE, SELFPAY ==
[2023-11-01 14:26] LABS: Alanine Aminotransferase 15 U/L (6-35); Albumin Level 4.2 g/dL (3.5-5.1); Alkaline Phosphatase 59 U/L (38-126); Anion Gap 4 mmol/L (8-16); Aspartate Amino Transferase 25 U/L (14-36); Bilirubin,Total 0.9 mg/dL (0.2-1.3); Blood Urea Nitrogen 23 mg/dL (7-17); Calcium 9.3 mg/dL (8.4-10.2); Carbon Dioxide 24 mmol/L (22-30); Chloride 108 mmol/L (98-107); Estimated Glomerular Filt Rate > 60; Glucose 95 mg/dL (65-110); Potassium 3.6 mmol/L (3.4-5.0); Sodium 136 mmol/L (137-145)
== END 2023-11-01 12:53 | disposition home or self-care (01) ==
LOC: ANHLAB 12:53
PROVIDERS: PCP Family Medicine; Visit Provider Physician Assistant Medical
DX: E78.2 Mixed hyperlipidemia (principal)
CPT/HCPCS: 36415; 80053

== ENCOUNTER 2024-03-07 11:02 | Outpatient (CLI) | payer MEDICARE, SELFPAY ==
--- NOTE | ~2024-03-07 | CT_ITS ---
EXAMINATION: CT sinus wo con DATE: 03/07/2024 11:48 INDICATION: Chronic sinusitis TECHNIQUE: Computed tomography (CT) of the paranasal sinuses was performed without intravenous contra st. The dose-length product was 343.37 mGy-cm. Automated exposure control and iterative reconstructio n technique were employed. COMPARISON: None FINDINGS: There is mucosal thickening of the ethmoid, sphenoid and maxillary sinuses. No air-fluid le vels. No significant mucoperiosteal reaction. Rightward nasal septal deviation. Ostiomeatal units are patent. Mastoids are pneumatized. IMPRESSION: 1. Mild sinusitis. Reviewed, dictated and finalized at location B. IMPRESSION: 1. Mild sinusitis.
== END 2024-03-07 11:03 | disposition home or self-care (01) ==
LOC: ANHIMG 11:07
PROVIDERS: PCP Family Medicine; Visit Provider Family Medicine
DX: J01.90 Acute sinusitis, unspecified (principal)
CPT/HCPCS: 70486

== ENCOUNTER 2024-07-11 09:00 | Outpatient (CLI) | payer MEDICARE, SELFPAY ==
--- NOTE | ~2024-07-11 | CT_ITS ---
CT Scan of the Chest without Contrast: Clinical Indication: Pulmonary nodules Technique: Contiguous sections were acquired throughout the chest without intravenous contrast. Dose reduction technique was used on this scan by utilizing automated exposure control and iterative recon struction technique. The dose-length product (DLP) was 141.90 mGy-cm. COMPARISON: 05/14/2023 Findings: There is no evidence of any significant mediastinal, hilar or axillary lymphadenopathy. Coronary jorge ry calcification present. There is no evidence of pleural or pericardial effusion. Multiple grouped nodules at the left lung base/left lobe are again present, largest nodule measuring up to 1 cm in diameter. Medial pleural-based consolidation the left lung base is also unchanged. Smal ler nodules and focal peripheral consolidation at the medial right lung bases also essentially unchan ged from prior exam. There is minimal bronchiolectasis and scarring in the anteromedial right middle lobe, with minimal involvement in the anteromedial lingula. Images through the upper abdomen reveal numerous hepatic cysts. Impression: Stable pulmonary findings since prior exam. There are multiple nodules and areas of probable scarring , predominantly at the lung bases, as detailed above. Findings suggest sequelae of prior infection/gr anulomatous disease. Reviewed, dictated and finalized at [facility]. [employer] Impression: Stable pulmonary findings since prior exam. There are multiple nodules and area s of probable scarring, predominantly at the lung bases, as detailed above. Fin dings suggest sequelae of prior infection/granulomatous disease.
== END 2024-07-11 09:01 | disposition home or self-care (01) ==
PROVIDERS: PCP Family Medicine; Visit Provider Internal Medicine Critical Care Medicine
DX: J47.9 Bronchiectasis, uncomplicated (principal); R91.8 Other nonspecific abnormal finding of lung field
CPT/HCPCS: 71250

== ENCOUNTER 2025-04-20 10:04 | Outpatient (CLI) | payer OTHER, SELFPAY ==
--- OUTSIDE RECORDS SUMMARY | 2025-04-20 10:30 | XMS_ITS | Encounter Summary ---
Author Organization [facility] Address [address] [place] [address] Care Team Providers Care Staff Rn Name Role Phone Khoi Isaacs MD Unavailable Shadia Talbert MD Primary Care Provider [phone] Reason for Visit * Reason Onset Date Comments Procedure 11/27/2024 BRONCHOSCOPY Encounter Details Date Type Department Care Team (Late st Contact Info) Description 11/27/2024 Telephone [facility] - Centralized Scheduling [address] [place] [id number] Sylvia Mann Procedure (BRONCHOSCOPY) Social History Tobacco Use Types Packs/Day Years Used Date Smoking Tobacco: Never Smokeless Tobacco: Never Alcohol Use Standard Drinks/Week Comments Yes 0 (1 standard drink = 0.6 oz pur e alcohol) 2 monthly PHQ-2 Answer Date Recorded Patient Health Questionnaire-2 Score 0 09/25/2024 Comments No Sex and Gender Information Value Date Recorded Sex Assigned at Not on file Legal Sex Female 2:45 PM CDT Gender Identity Not on file Sexual Orientation Not on file documented as of this encounter Miscellaneous Notes * Telephone Encounter - Sylvia Mann - 11/27/2024 2:31 PM CDT RE: 11/19/2024 Can Christensen MD [place] [facility] ! called in today to follow-up on a request to complete a Bronchoscopy... Please follow-up with patient at your soonest convenience... Thanks! documented in this encounter Plan of Treatment Upcoming Encounters Date Type Department Care Team (Late st Contact Info) Description 04/28/2025 1:00 PM CDT Office Visit [facility] - Infectious Disease [address] [place] [phone] Rajendra Jeffrey MD [address] [place] [address] DIV OF INFECTIOUS DIS [address] [place] [phone] 05/12/2025 8:45 AM CDT Office Visit [facility] - ENT [address] [place] [phone] Edgar Cedillo MD [address] [place] [address] [place] [address] 06/16/2025 2:00 PM [employer] STOCK [employer] Office Visit [facility] - Pulmonology [address] [place] [phone] Rachell Boyer, DO [address] [place] [address] 06/16/2025 3:20 PM [employer]OTH STOCK S[employer]TER [facility] - Rheumatology [address] [place] [phone] Naina Duvall MD [address] [place] [address] [place] [address] documented as of this encounter Visit Diagnoses Not on filedocumented in this encounter Care Teams Staff Rn Relationship Specialty Start Date End Date Shadia Talbert MD [address] [place] [address] PCP - General Family Medicine 05/16/24 Khoi Isaacs MD [address] [phone] Physician Pulmonary Disease 04/01/19 documented as of this encounter
--- OUTSIDE RECORDS SUMMARY | 2025-04-20 10:30 | XMS_ITS | Patient Health Record ---
Author Organization [facility] Address [address] [facility] [address] [place] [address] Care Team Providers Care Divine Healer Name Role Phone InduBobbi Primary Care Provider Unavailab le Reason For Referral No Information Medications Medication SIG (Take, Route, Frequency, Duration) Notes Start Date End Date Status Vitamin D Active Meloxicam Active Multivitamins Active Social History Tobacco Use: Social History Observation Description Date Details (start date - stop date) Never Smoker NA - NA Smoking history: Question Answer Notes Ever smoked? Never Section Notes: Denies smoking, alcohol or d rug use Problems Problem Type SNOMED Code ICD Code Onset Dates Problem Status W/U Status Risk Notes Problem Uncomplicated asthma (disorder) (791368614) Unspecified asthma, uncomplicated (J45.909) Active confirmed Problem Multiple nodules of lung (829233484) Lung nodules (R91.8) Active confirmed Plan Of Treatment Pending Test Test Name Order Date IGE Level 05/30/2017 PULMONARY FUNCTION TEST 05/30/2017 [facility] Allergen Panel 05/30/20 17 Insurance Providers Payer Name Payer Address Payer Phone Subscriber Number Group Number Insured Name Patient Relationship to Insured Coverage Start Date Coverage End Date [facility] [address] [address] [place], [place] [id number] [phone] [id number] [id number] Miguelina Cowan Self - patient is the insured Medical (General) History Medical History History ICD Code DJD Surgical History Surgery Date(Month/Year) Hystrectomy
--- OUTSIDE RECORDS SUMMARY | 2025-04-20 10:30 | XMS_ITS | Encounter Summary ---
Author Organization [employer] Address [address] [place] [address] Care Team Providers Care Photographic Process Worker Name Role Phone Bobbi Baca MD Primary Care Provider [phone] Encounter Details Date Type Department Care Team (Late st Contact Info) Description 08/28/2011 Chart Note [facility] Therapy Services [address] [place] [address] Hailey Otto Physical Therapist Social History Tobacco Use Types Packs/Day Years Used Date Smoking Tobacco: Never Smokeless Tobacco: Never Alcohol Use Standard Drinks/Week Comments No 0 (1 standard drink = 0.6 oz pur e alcohol) Comments Unknown Sex and Gender Information Value Date Recorded Sex Assigned at Not on file Legal Sex Female 5:13 AM [employer] Gender Identity Not on file Sexual Orientation Not on file documented as of this encounter Plan of Treatment Not on file documented as of this encounter Visit Diagnoses Not on filedocumented in this encounter Care Teams Photographic Process Worker Relationship Specialty Start Date End Date Bobbi Baca MD PCP - General Pediatrics 06/01/17 documented as of this encounter
--- OUTSIDE RECORDS SUMMARY | 2025-04-20 10:30 | XMS_ITS | Clinical Summary ---
Author Organization [facility] Address [address] [place] [address] Care Team Providers Care Railroad Brakeman Name Role Phone Khoi Isaacs MD Unavailable Shadia Talbert MD Primary Care Provider [phone] Source Comments [facility],non-owned Affiliates and Associated Physician Practices is amultiple site organization consisting of ambulatory clinics and hospital sitesin [place], [place], [place] and [place]. This disclosure is being madepursuant to the Care Everywhere program and may not contain all information available regarding this patient. Last updated 18.[facility] [employer] Allergies Active Allergy Reactions Criticality Noted Date Comments Levofloxacin Other 12/13/2018 Severe pain in legs and feet Medications * Be aware that medications may not be up to date on this document. Alwaysverify current medications with the patient. fluticasone propionate (FLONASE) 50 MCG/ACT nasal spray Bethany 1 (one) spray into each nostril once daily 11/19/19 19 Active valACYclovir (VALTREX) 500 MG tablet Take 1 (one) tablet by mouth once daily Take half tablet daily 3 11/19/19 19 Active albuterol HFA (Proventil; Ventolin; Proair) 108 (90 Base) MCG/ACT inhaler Inhale 2 (two) puffs by mouth as needed 09/23/19 25 Active melatonin 5 MG tablet Take 1 (one) tablet by mouth at bedtime Active Artificial Tear Ointment (DRY EYES OP) by Ophthalmic route nightly as needed Active omeprazole (PriLOSEC) 40 MG capsule Take 1 (one) capsule by mouth once daily 30 capsule 2 01/21/20 25 Active azithromycin (Zithromax) 500 MG tabletIndications :Mycobacterium Avium Complex Infection Take 1 (one) tablet by mouth every Sunday, Sunday & Sunday Reasons: Mycobacterium Avium Complex Infection 180 tablet 02/19/20 25 Active ethambutol (Myambutol) 400 MG tabletIndications :Pulmonary infection due to Mycobacterium avium-intracellul are (GATO) (HCC) Take 4 (four) tablets by mouth every Sunday, Sunday & Sunday 300 tablet 02/19/20 25 026 Active rifabutin (Mycobutin) 150 MG capsuleIndication s:Pulmonary infection due to Mycobacterium avium-intracellul are (GATO) (HCC) Take 2 (two) capsules by mouth every Sunday, Sunday & Sunday 24 capsule 5 02/19/20 25 026 Active Active Problems Problem Noted Date Diagnosed Date 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 Pulmonary nodules 11/19/2024 Chronic cough 11/19/2024 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 Other forms of systemic lupus erythematosus 11/2023 Rheumatoid arthritis involvi ng multiple sites with positive rheumatoid factor 05/16/2024 Allergic bronchitis 07/17/2011 Allergic rhinitis 05/25/2010 Tinnitus 05/25/2010 Encounters Date Type Department Care Team Description 03/24/2025 Travel 03/20/2025 Travel 02/17/2025 3:00 PM CDT Office Visit [facility] - Infectious Disease [address] [facility], [facility] [place] [address] Rajendra Jeffrey MD 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) ([facility]) (Primary Dx) 02/17/2025 Travel 02/05/2025 Travel 02/02/2025 Telephone [facility] - Centralized Scheduling [address] [place] [address] Parker Ruby MD Referral 01/21/2025 Telephone [facility] [address] [place] [address] Rachell Boyer, DO Results 01/20/2025 12:45 PM CDT Office Visit [facility] - ENT [address] [facility], [place] [address] Edgar Cedillo MD Chronic cough (Primary Dx) 01/20/2025 10:58 AM CDT - 01/20/2025 11:59 PM CDT Hospital Encounter [facility] LAB OP DRAW STATION [address] [place] [address] Edgar Cedillo MD Discharge Disposition: Home or Self Care 01/20/2025 10:58 AM CDT - 01/20/2025 11:59 PM CDT Hospital Encounter [facility] EKG/HOLTER [address] [place] [address] Edgar Cedillo MD Discharge Disposition: Home or Self Care 01/20/2025 Travel 01/19/2025 Telephone [facility] [address] [place] [address] Rachell Boyer, DO Results from Last 3 Months Immunizations Immunization Administration Dates Next Due INFLUENZA VACCINE, TRIV. (AF LURIA, FLUZONE TRIVALENT; 6MO+) (IIV3) 05/20/2017,07/31/2014,09/11/2012 INFLUENZA VACCINE, QUADR. (F LUZONE; FLULAVAL; FLUARIX; AFLURIA QUADRIVALENT; 6MO+), 0.5 ML (IIV4) 07/10/2018 TD (AGE 9-ADULT) 08/13/2004 Family History Medical History Relation Name Comments Arthritis - Rheumatoid Father Hearing Loss - Unspecified Father Other - Cardiac Father CHF Hypertension Mother Other - Cardiac Mother CHF Relation Name Status Comments Father Mother Social History Tobacco Use Types Packs/Day Years Used Date Smoking Tobacco: Never Smokeless Tobacco: Never Tobacco Cessation:Counseling Given: Not Answered Alcohol Use Standard Drinks/Week Comments Yes 0 (1 standard drink = 0.6 oz pur e alcohol) 1 x month PHQ-2 Answer Date Recorded Patient Health Questionnaire-2 Score 0 09/25/2024 Comments No Sex and Gender Information Value Date Recorded Sex Assigned at Not on file Legal Sex Female 2:45 PM CDT Gender Identity Not on file Sexual Orientation Not on file Last Filed Vital Signs Vital Sign Reading Time Taken Comments Blood Pressure 124/74 02/17/2025 2:57 PM CDT Pulse 81 02/17/2025 2:57 PM CDT Temperature 36.5 C (97.7 F) 02/17/2025 2:57 PM CDT Respiratory Rate 18 02/17/2025 2:57 PM CDT Oxygen Saturation 94% 02/17/2025 2:57 PM CDT Inhaled Oxygen Concentration - - Weight 65.8 kg (145 lb) 02/17/2025 2:57 PM CDT Height 165.1 cm (5' 5) 02/17/2025 2:57 PM CDT Body Mass Index 24.13 02/17/2025 2:57 PM CDT Plan of Treatment Upcoming Encounters Date Type Department Care Team (Late st Contact Info) Description 04/28/2025 1:00 PM CDT Office Visit [facility] - Infectious Disease [address] [place] [phone] Rajendra Jeffrey MD [address] [place] [address] DIV OF INFECTIOUS DIS [address] [place] [phone] 05/12/2025 8:45 AM CDT Office Visit [facility] - ENT [address] [place] [phone] Edgar Cedillo MD [address] [place] [address] [place] [address] 06/16/2025 2:00 PM RESPIRATORY SUPERVISOR Office Visit [facility] - Pulmonology [address] [place] [phone] Rachell Boyer, [address] [place] [address] 06/16/2025 3:20 PM RESPIRATORY SUPERVISOR Office Visit [facility] - Rheumatology [address] [place] [phone] Naina Duvall MD [address] [phone] Health Maintenance Due Date Last Done Comments BONE DENSITY TESTING 1950 COLOGUARD (AGES 45-75) - COLON CA SCREENING 1952 COLON MONITORING 1952 COLONOSCOPY - COLON CA SCREENING 1952 CT COLONOGRAPHY - COLON CA SCREENING 1952 Colorectal Cancer Screening 1952 FIT - COLON CA SCREENING 1952 FLEX SIG - COLON CA SCREENING 1952 LIPID TESTING 1950 MEDICARE AWV 12 MONTHS 1952 HEPATITIS C SCREENING 10/13/1970 PNEUMOCOCCAL VACCINE 50+ (1 of 1 - PCV) 2002 ZOSTER VACCINE (1 of 2) 2002 DTAP/TDAP/TD VACCINES (2 - Td or Tdap) 08/13/2014 08/13/2004 MAMMOGRAM 08/11/2016 08/11/2014, 08/13, 05/09/2011 COVID-19 VACCINE ( season) 2025 06/04/2021, 10/29/2020, 10/08/2020 INFLUENZA VACCINE (#1) 2025 , 06/08/2023, 06/05/2022, Additional history exists Respiratory Syncytial Virus (RSV) Vaccine Pt: or over 60 yrs (1 - 1-dose 75+ series) 10/18/2027 DEPRESSION SCREENING Completed 09/25/2024 HEPATITIS B VACCINE Aged Out No longe r eligible based on patient's age to complete this topic HIB VACCINE Aged Out No longer eligi ble based on patient's age to complete this topic HPV VACCINE Aged Out No longer eligi ble based on patient's age to complete this topic MENINGOCOCCAL (Group B) VACCINE SHARED DECISION-MAKING Aged Out No longer eligible based on patient's age to complete this topic MENINGOCOCCAL GROUPS A/C/Y/W VACCINE Aged Out No longer eligible based on patient's age to complete this topic Procedures Procedure Name Priority Date/Time Associated Diagnosis Comments DE LARYNGOSCOPY,FLEX FIBER,DIAGNOSTIC Routine 01/20/2025 4:36 PM CDT Chronic cough COMPREHENSIVE METABOLIC PANEL Routine 01/20/2025 11:45 AM CDT 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) (HCC) CBC W AUTO DIFFERENTIAL Routine 01/20/2025 11:45 AM CDT 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 The topical anesthesia was administered and then adequate time was allowed for an anesthetic effect. The endoscope was passed thru the nasal cavity with the tongue retracted anteriorly. The tip of the endoscope was positioned in the oropharynx which allowed a complete view of the base of tongue, vallecula, pyriform recesses, epiglottis, bilateral true and false vocal folds, the interarytenoid and post cricoid region, and the immediate subglottis. Findings: The above structures were normal unless otherwise specified. Condition: Stable. Patient tolerated procedure well. Complications: None Dr. Cedillo was present for the entirety of the procedure. us Edgar Cedillo MD PROCEDURE/MINOR SURGICAL ORD ERABLES Final Result * (ABNORMAL) CBC WITH DIFFERENTIAL (01/20/2025 11:45 AM CDT) WBC 8.9 4.0 - 10.7 x10E9/L 01/20/2025 12:05 PM [facility] RBC Count 4.21 3.90 - 5.20 x10E12/L 01/20/2025 12:05 PM [facility] Hemoglobin 11.9 11.9 - 15.8 g/dL 01/20/2025 12:05 PM [facility] Hematocrit 36.4 34.8 - 46.1 % 01/20/2025 12:05 PM [facility] MCV 86.5 80.0 - 98.0 fL 01/20/2025 12:05 PM [facility] MCH 28.3 26.7 - 33.6 pg 01/20/2025 12:05 PM [facility] MCHC 32.7 31.7 - 36.3 g/dL 01/20/2025 12:05 PM [facility] RDW-CV 13.6 11.3 - 14.8 % 01/20/2025 12:05 PM [facility] Platelet Count 305 150 - 420 x10E9/L 01/20/2025 12:05 PM [facility] MPV 10.2 7.8 - 11.4 fL 01/20/2025 12:05 PM [facility] Neutrophil % 75.4(H) 41.0 - 74.0 % 01/20/2025 12:05 PM [facility] Lymphocyte % 17.0 17.0 - 47.0 % 01/20/2025 12:05 PM [facility] Monocyte % 5.4 3.0 - 11.0 % 01/20/2025 12:05 PM [facility] Eosinophil % 1.5 0.0 - 7.0 % 01/20/2025 12:05 PM [facility] Basophil % 0.4 0.0 - 1.6 % 01/20/2025 12:05 PM [facility] Immature Granulocytes % 0.3 0.0 - 1.0 % 01/20/2025 12:05 PM [facility] Neutrophil Absolute 6.73 1.60 - 7.50 x10E9/L 01/20/2025 12:05 PM [facility] Lymphocyte Absolute 1.52 1.00 - 4.40 x10E9/L 01/20/2025 12:05 PM [facility] Monocyte Absolute 0.48 0.15 - 1.00 x10E9/L 01/20/2025 12:05 PM [facility] Eosinophil Absolute 0.13 0.00 - 0.60 x10E9/L 01/20/2025 12:05 PM [facility] Basophil Absolute 0.04 0.00 - 0.13 x10E9/L 01/20/2025 12:05 PM [facility] Blood BLOOD SPECIMEN / Unknown Lab Venipuncture / Unknown 01/20/2025 11:45 AM CDT 01/20/2025 11:59 AM CDT us Rachell Boyer DO LAB - HEMATOLOGY ORDERABLES Cathryn l Result [facility] [address] [place] [phone], [facility] [place] [phone] * (ABNORMAL) COMPREHENSIVE METABOLIC PANEL (01/20/2025 11:45 AM CDT) BUN 21 7 - 26 mg/dL 01/20/2025 10:33 PM [facility] Creatinine 1.08(H) 0.56 - 0.96 mg/dL 01/20/2025 10:33 PM [facility] Sodium 139 136 - 145 mmol/L 01/20/2025 10:33 PM [facility] Potassium 3.8 3.5 - 4.5 mmol/L 01/20/2025 10:33 PM [facility] Chloride 111(H) 98 - 107 mmol/L 01/20/2025 10:33 PM [facility] CO2 16(L) 22 - 29 mmol/L 01/20/2025 10:33 PM [facility] Glucose 100(H) 70 - 99 mg/dL 01/20/2025 10:33 PM [facility] Calcium 9.2 8.4 - 10.2 mg/dL 01/20/2025 10:33 PM [facility] Protein Total 7.1 6.0 - 8.3 g/dL 01/20/2025 10:33 PM [facility] Albumin 3.5 3.4 - 5.0 g/dL 01/20/2025 10:33 PM [facility] Bilirubin Total 0.5 0.2 - 1.2 mg/dL 01/20/2025 10:33 PM [facility] Alkaline Phosphatase 72 40 - 150 U/L 01/20/2025 10:33 PM [facility] ALT 14 5 - 55 U/L 01/20/2025 10:33 PM [facility] AST 17 5 - 34 U/L 01/20/2025 10:33 PM [facility] Anion Gap 12 6 - 16 01/20/2025 10:33 PM [facility] BUN/Creatinine Ratio 19 7 - 23 01/20/2025 10:33 PM [facility] Osmolality Calculated 291 275 - 295 mOsm/kg 01/20/2025 10:33 PM [facility] Albumin/Globulin Ratio 1.0(L) 1.1 - 2.3 01/20/2025 10:33 PM [facility] eGFR by CKD-EPI 55(L) >=90 mL/min/1.7 3 m2 01/20/2025 10:33 PM [facility] Blood BLOOD SPECIMEN / Unknown Lab Venipuncture / Unknown 01/20/2025 11:45 AM T 01/20/2025 12:22 PM [facility] - 01/20/2025 10:33 PM [facility] Estimated Glomerular Filtration Rate (eGFR) calculated using the CKD-EPI Creatinine Equation (2020), per the National Kidney Foundation and [place] [employer]ph[employer] recommendations. us Rachell Boyer DO LAB - CHEMISTRY ORDERABLES Final Result [facility] [address] [place] [address], [facility] [place] [phone] * EKG 12-Lead (01/20/2025 11:37 AM [facility]) Ventricular Rate 67 BPM [facility] Atrial Rate 67 BPM [facility] P-R Interval 172 ms [facility] QRS Duration ms 62 ms [facility] Q-T Interval ms 386 ms [facility] QTC Calculation (Bezet) 407 ms [facility] Calculated P [place] 58 degrees [facility] Calculated R [place] 34 degrees [facility] Calculated T [place] 63 degrees [facility] Interpretation EKG NORMAL SINUS RHYTHM LOW VOLTAGE QRS CANNOT RULE OUT ANTERIOR INFARCT , AGE UNDETERMINED ABNORMAL ECG NO PREVIOUS ECGS AVAILABLE Confirmed by LUC POON MD ([id number]) on 01/21/2025 2:30:09 PM [facility] MUSE 01/20/2025 11:3 7 AM CDT 01/21/2025 2:30 PM CDT Rachell Boyer ECG ORDERABLES Edited Result - Final [facility] MUSE from Last 3 Months Insurance [facility] MEDICARE Care Teams Railroad Brakeman Relationship Specialty Start Date End Date Shadia Talbert MD [address] [place] [address] PCP - General Family Medicine 05/16/24 Khoi Isaacs MD [address] [phone] Physician Pulmonary Disease 04/01/19
--- OUTSIDE RECORDS SUMMARY | 2025-04-20 10:30 | XMS_ITS | Encounter Summary ---
Author Organization [facility] Address [address] [facility] [place] [address] Care Team Providers Care Motorcycle Service Technician Name Role Phone Khoi Isaacs MD Unavailable Shadia Talbert MD Primary Care Provider [phone] Encounter Details Date Type Department Care Team (Late st Contact Info) Description 01/12/2025 Telephone [facility] - Pulmonology [address] [facility] [place] [phone] Rachell Boyer, DO [address] [place] [phone] Social History Tobacco Use Types Packs/Day Years [...] on file documented as of this encounter Functional Status * Is person deaf or have serious hearing difficulty? Answer Date of Assessment Author No 12/16/2024 12:12 PM CDT Beatriz Marks RN * Is person blind or have serious difficulty seeing? Answer Date of Assessment Author No 12/16/2024 12:12 PM CDT Beatriz Marks RN * Does person have serious difficulty walking/climbing stairs? Answer Date of Assessment Author No 12/16/2024 12:12 PM CDT Beatriz Marks RN * Does person have difficulty dressing/bathing? Answer Date of Assessment Author No 12/16/2024 12:12 PM CDT Beatriz Marks RN * Does person have difficulty doing errands alone? Answer Date of Assessment Author No 12/16/2024 12:12 PM CDT Beatriz Marks RN documented as of this encounter Mental Status * Does person have difficulty concentrating/remembering/making decisions? Answer Entry Date Author No 12/16/2024 12:12 PM CDT Beatriz Marks RN documented in this encounter Miscellaneous Notes * Telephone Encounter - Jelly Snider - 01/12/2025 9:06 AM CDT Current Provider: Dr. Boyer Reason for Call: Mrs. Miguelina Cowan had appt 02/17/25 which had to be rescheduled, first avail is 06/16/25 which is scheduled. She would like to have a sooner appt since a brocoscopy was done and she would like to follow that up, she has numerous questions.Her Broncoscopy was done by Dr. Chen 12/16/24,please advise. She's very congested and stated she's having a lot of bronchial coughing. She also noted, she saw her PCP and was given antibiotics and a steroid on 12/26/24. Patient Call Back Number: [phone] documented in this encounter Plan of Treatment Upcoming Encounters Date Type Department Care Team (Late st Contact Info) Description 04/28/2025 1:00 PM CDT Office Visit [facility] - Infectious Disease [address] [place] [phone] Rajendra Jeffrey MD [address] [place] [address] OF INFECTIOUS DIS [address] [place] [phone] 05/12/2025 8:45 AM CDT Office Visit [facility] - ENT [address] [place] [address], [place] [phone] Edgar Cedillo MD [facility] [facility] 2L DEPT [place] [address] 06/16/2025 2:00 PM MANAGER FEDERAL Office Visit [facility] - Pulmonology [address] [place] [address], [place] [phone] Rachell Boyer, [address] [place] [phone] 06/16/2025 3:20 PM MANAGER FEDERAL Office Visit [facility] - Rheumatology [address] [place] [phone] Naina Duvall MD [address] [place] [address] [address] [place] [phone] documented as of this encounter Visit Diagnoses Not on filedocumented in this encounter Care Teams Motorcycle Service Technician Relationship Specialty Start Date End Date Shadia Talbert MD [address] [place] [address] PCP - General Family Medicine 05/16/24 Khoi Isaacs MD [address] [phone] Physician Pulmonary Disease 04/01/19 documented as of this encounter
--- OUTSIDE RECORDS SUMMARY | 2025-04-20 10:30 | XMS_ITS | Clinical Summary ---
Author Organization [facility] Address [address] [facility] [place] [address] Care Team Providers Care Orthotic Fitter Name Role Phone Bobbi Baca MD Primary Care Provider [phone] Allergies Active Allergy Reactions Criticality Noted Date Comments Prednisone Other (See Comments) 07/17/2011 [place] it leaving her body, nausea and muscle aches Medications albuterol sulfate (PROAIR HFA) 90 mcg/Actuation inhaler Take 2 Puffs by inhalation every 6 hours as needed for Respiration, Shortness of Breath or Wheezing. 6.7 Gram 0 5 Active meloxicam (MOBIC) 7.5 mg tablet Take 7.5 mg by mouth daily. Active multivitamin (DAILY-BELEN) tablet Take 1 Tablet by mouth daily. Active DM/P-EPHED/ACET AMINOPH/DOXYLAM (NYQUIL ORAL) Take 30 mL by mouth nightly as needed. 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 over sacral area Immunizations Immunization Administration Dates Next Due (TDVAX)(7 YRS UP) TETANUS AN D DIPHTHERIA TOXOIDS, ADSORBED (2 LF OF TETANUS TOXOID AND 2 LF OF DIPHTHERIA TOXOID), 0.5ML (PF), IM 08/13/2004 Influenza Seasonal Unspecified Formulation IM ,09/11/2012 Influenza Vaccine Split 3+ Yrs IM 07/31/2014 Family History Medical History Relation Name Comments Heart Disease Father Hypertension Mother Breast Cancer Paternal Aunt Colon Cancer Paternal Grandfather Relation Name Status Comments Father Alive Mother Alive Paternal Aunt Paternal Grandfather Social History Tobacco Use Types Packs/Day Years Used Date Smoking Tobacco: Never Smokeless Tobacco: Never Alcohol Use Standard Drinks/Week Comments No 0 (1 standard drink = 0.6 oz pur e alcohol) Comments No Sex and Gender Information Value Date Recorded Sex Assigned at Not on file Legal Sex Female 5:13 AM TEXTILE COATING MACHINE OPERATOR Gender Identity Not on file Sexual Orientation Not on file Last Filed Vital Signs Vital Sign Reading Time Taken Comments Blood Pressure 106/63 06/22/2017 3:30 PM TEXTILE COATING MACHINE OPERATOR Pulse 75 06/22/2017 3:30 PM TEXTILE COATING MACHINE OPERATOR Temperature 36.2 C (97.1 F) 06/22/2017 10:44 AM TEXTILE COATING MACHINE OPERATOR Respiratory Rate 18 06/22/2017 1:03 PM TEXTILE COATING MACHINE OPERATOR Oxygen Saturation 95% 06/22/2017 3:30 PM TEXTILE COATING MACHINE OPERATOR Inhaled Oxygen Concentration - - Weight 68 kg (150 lb) 06/20/2017 5:04 PM TEXTILE COATING MACHINE OPERATOR Height 167.6 cm (5' 6) 06/20/2017 5:04 PM TEXTILE COATING MACHINE OPERATOR Body Mass Index 24.21 06/20/2017 5:04 PM TEXTILE COATING MACHINE OPERATOR Plan of Treatment Health Maintenance Due Date Last Done Comments PNEUMOCOCCAL VACCINE 50+ YEA RS (1 of 2 - PCV) 10/18/1971 FIT-DNA Q 3 years 1997 FIT/FOBT Q 1 year 1997 Flex Sig/CT Colonography Q 5 years 1997 ZOSTER VACCINE (1 of 2) 2002 DTAP/TDAP/TD VACCINES (1 - Tdap) 08/14/2004 08/13/19 05 RSV VACCINE (60+ or ) (1 - Risk 60-74 years 1-dose series) 2012 BREAST CANCER SCREENING 08/11/2015 08/11/20 14, 08/26/2012, 05/09/2011, Additional history exists COLORECTAL SCREENING 08/13/2016 08/13/2006 (Previously completed) Colorectal Cancer Screening 08/13/2016 OSTEOPOROSIS SCREENING 2017 INFLUENZA VACCINE (#1) 2025 7, 07/31/2014, 09/11/2012 Procedures Procedure Name Priority Date/Time Associated Diagnosis Comments MAMMO DIAGNOSTIC BILATERAL W OR WO CAD Routine 08/11/2014 1:19 PM TEXTILE COATING MACHINE OPERATOR Lump of right breast Breast pain, right from Last 3 Months or Most Recently Relevant to Health Maintenance Results * MAMMO DIGITAL DIAG BILAT (08/11/2014 1:19 PM TEXTILE COATING MACHINE OPERATOR) Anatomical Region Laterality Modality Breast Bilateral Mammography 08/11/2014 1:19 PM TEXTILE COATING MACHINE OPERATOR Impressions 08/14/2014 7:46 AM TEXTILE COATING MACHINE OPERATOR IMPRESSION: 1. No imaging correlate to the allegedly palpable abnormality in the right 6:00 position. 2. No mammographic evidence of malignancy. Routine followup is recommended. OVERALL ASSESSMENT: BI-RADS category 1 - Negative Dictated from [facility] 08/14/2014 7:46 AM TEXTILE COATING MACHINE OPERATOR DIGITAL DIAGNOSTIC BILATERAL MAMMOGRAPHY WITH CAD AND RIGHT BREAST ULTRASOUND 08/11/2014. HISTORY: Lump in right breast. Comparison mammograms dated 04/12/09, 05/09/2011 and 08/26/2012. FINDINGS: The breast parenchyma is heterogeneously dense. There is no dominant mass, spiculation, architectural distortion, skin thickening or malignant calcifications. In the right 6:00 position where patient complains of a palpable abnormality, normal fatty breast parenchyma is seen. Targeted ultrasound of the right lower outer quadrant demonstrates normal parenchyma. No cystic or solid masses are identified. Procedure Note Patricia Knight MD - 08/14/2014 DIGITAL DIAGNOSTIC BILATERAL MAMMOGRAPHY WITH CAD AND RIGHT BREAST ULTRASOUND 08/11/2014. HISTORY: Lump in right breast. Comparison mammograms dated 04/12/09, 05/09/2011 and 08/26/2012. FINDINGS: The breast parenchyma is heterogeneously dense. There is no dominant mass, spiculation, architectural distortion, skin thickening or malignant calcifications. In the right 6:00 position where patient complains of a palpable abnormality, normal fatty breast parenchyma is seen. Targeted ultrasound of the right lower outer quadrant demonstrates normal parenchyma. No cystic or solid masses are identified. IMPRESSION IMPRESSION: 1. No imaging correlate to the allegedly palpable abnormality in the right 6:00 position. 2. No mammographic evidence of malignancy. Routine followup is recommended. OVERALL ASSESSMENT: BI-RADS category 1 - Negative Dictated from [facility] Georgeebtty McKirstie DO MAMMO ORDERABLES Fi nal Result from Last 3 Months or Most Recently Relevant to Health Maintenance Insurance [facility] OPTIONS PPO [id number] [facility] Address: [facility] [id number] [place] [address] Care Teams Orthotic Fitter Relationship Specialty Start Date End Date Bobbi Baca MD PCP - General Pediatrics 06/01/17
[2025-04-20 10:46] LABS: Hematocrit 41.5 % (37.0-47.0); Hemoglobin 13.3 g/dL (12.0-15.0); Immature Granulocyte Percent A 0.3 % (0-0.5); Lymphocytes Absolute Auto 1.92 K/mm3 (0.9-3.2); Mean Corpuscular HGB Conc 32.0 g/dl (32-36); Mean Corpuscular Hemoglobin 28.7 pg (26-34); Mean Corpuscular Volume 89.4 fl (80-100); Nucleated Red Blood Cells Absolute Auto 0.000 K/mm3 (0.0-0.012); Nucleated Red Blood Cells Perc 0.0 % (0.0-0.2); Platelet Count Result 250 k/mm3 (150-375); Red Blood Count 4.64 M/mm3 (4.2-5.4); White Blood Count 6.0 K/mm3 (4.5-10.0)
[2025-04-20 11:04] LABS: Alanine Aminotransferase 11 U/L (6-35); Albumin Level 4.4 g/dL (3.5-5.1); Alkaline Phosphatase 72 U/L (38-126); Anion Gap 7 mmol/L (4-12); Aspartate Amino Transferase 26 U/L (14-36); Bilirubin,Total 0.8 mg/dL (0.2-1.3); Blood Urea Nitrogen 18 mg/dL (7-17); Calcium 9.2 mg/dL (8.4-10.2); Carbon Dioxide 24 mmol/L (22-30); Chloride 107 mmol/L (98-107); Estimated Glomerular Filt Rate 52; Glucose 90 mg/dL (65-110); Potassium 3.9 mmol/L (3.4-5.0); Sodium 138 mmol/L (137-145); Total Protein 7.7 g/dL (6.3-8.2)
== END 2025-04-20 10:05 | disposition home or self-care (01) ==
PROVIDERS: PCP Family Medicine
DX: A31.0 Pulmonary mycobacterial infection (principal)
CPT/HCPCS: 36415; 80053; 85025

== ENCOUNTER 2025-06-12 09:14 | Outpatient (CLI) | payer OTHER, SELFPAY ==
--- NOTE | ~2025-06-12 | CT_ITS ---
Exam: CT chest without contrast Clinical History: [Mycobacterium avium infection ] Comparison: [ CT chest high-resolution 07/11/2024 Technique: Multiple axial CT images of the chest without with IV contrast. Sagittal and coronal reformatted images were obtained. FINDINGS: Lungs and pleura: [ Tracheobronchial tree is patent. No pneumothorax. No pleural effusion. No free air under the diaphragm.] Mild bronchiectasis in the lower lobes, unchanged. Mild biapical scarring. There are several reticulonodular opacities and pulmonary nodules in the right middle lobe, lingula and lower lobes, the largest measures 8 mm in the left lower lobe. Overall, the findings are similar to the study from 07/11/2024. Mediastinum and pulmonary lorne: [ No mass or adenopathy.] Axillary/intramammary and supraclavicular: [ No mass or adenopathy.] Heart and great vessels: [ Normal heart size.[ [ No pericardial effusion.] [ No aneurysm.] Mild atherosclerotic disease in the thoracic aorta. There are a few coronary artery calcifications. Chest Wall: [ Unremarkable.] Upper Abdomen: Indeterminate 1.4 cm heterogeneous lesion in the left kidney. A renal mass CT is recommended. Numerous indeterminant low-density lesions scattered throughout the liver, the largest measures 3.9 cm in the medial segment of the left lobe of the liver. A liver mass CT is recommended. Osseous structures: [ No acute fracture lesion.] [ Multilevel degenerative change in the visualized spine.] Additional findings: [ None of significance.] IMPRESSION: 1. There are several reticulonodular opacities and pulmonary nodules in the right middle lobe, lingula and lower lobes, the largest measures 8 mm in the left lower lobe. Overall, the findings are similar to the study from 07/11/2024. Correlate clinically. A follow-up chest CT in 3 months is recommended. 2. Indeterminate 1.4 cm heterogeneous lesion in the left kidney. A renal mass CT is recommended. 3. Numerous indeterminant low-density lesions scattered throughout the liver, the largest measures 3.9 cm in the medial segment of the left lobe of the liver. A liver mass CT is recommended. Reviewed, dictated and finalized at location Q. IMPRESSION: 1. There are several reticulonodular opacities and pulmonary nodules in the rig ht middle lobe, lingula and lower lobes, the largest measures 8 mm in the left lower lobe. Overall, the findings are similar to the study from 07/11/2024. Cor relate clinically. A follow-up chest CT in 3 months is recommended. 2. Indeterminate 1.4 cm heterogeneous lesion in the left kidney. A renal mass C T is recommended. 3. Numerous indeterminant low-density lesions scattered throughout the liver, t he largest measures 3.9 cm in the medial segment of the left lobe of the liver. A liver mass CT is recommended.
--- OUTSIDE RECORDS SUMMARY | 2025-06-12 09:45 | XMS_ITS | Encounter Summary ---
Author Organization [facility] Address [address] [place] [address] Care Team Providers Care Transition Mgr Rn Name Role Phone Khoi Isaacs MD Unavailable Shadia Talbert MD Primary Care Provider [phone] Reason for Visit * Reason Onset Date Comments Procedure 11/27/2024 BRONCHOSCOPY Encounter Details Date Type Department Care Team (Late st Contact Info) Description 11/27/2024 Telephone [facility] - Centralized Scheduling [address] [place] [phone] Sylvia Mann Procedure (BRONCHOSCOPY) Social History Tobacco [...] PM CDT RE: 11/19/2024 Can Christensen MD [place] [facility] ! called in today to follow-up on a request to complete a Bronchoscopy... Please follow-up with patient at your soonest convenience... Thanks! documented in this encounter Plan of Treatment Upcoming Encounters Date Type Department Care Team (Late st Contact Info) Description 07/28/2025 1:00 PM CAN WORKER Office Visit [facility] - Infectious Disease [address] [place] [address], [place] [phone] Rajendra Jeffrey MD [address] [place] [address] DIV OF INFECTIOUS DIS [address] [place] [address] 09/02/2025 10:00 AM CAN WORKER Office Visit [facility] - Rheumatology [address] [place] [address], [place] [phone] Naina Duvall MD [address] [place] [address] [address] [place] [phone] documented as of this encounter Visit Diagnoses Not on filedocumented in this encounter Care Teams Transition Mgr Rn Relationship Specialty Start Date End Date Shadia Talbert MD [address] [place] [address] PCP - General Family Medicine 05/16/24 Khoi Isaacs MD [address] [phone] Physician Pulmonary Disease 04/01/19 documented as of this encounter
--- OUTSIDE RECORDS SUMMARY | 2025-06-12 09:45 | XMS_ITS | Clinical Summary ---
Author Organization [facility] Address [address] [facility] [place] [address] Care Team Providers Care Auger Machine Offbearer Name Role Phone Khoi Isaacs MD Unavailable Shadia Talbert MD Primary Care Provider [phone] Source Comments [facility],non-owned Affiliates and Associated Physician Practices is amultiple site organization consisting of ambulatory clinics and hospital sitesin [place], [place], [place] and [place]. This disclosure is being madepursuant to the Care Everywhere program and may not contain all information available regarding this patient. Last updated 18.[facility] Embrane Allergies Active Allergy Reactions Criticality Noted Date Comments Hydroxychloroquine Other 03/03/2024 Latex Rash Medium 03/03/2024 Levofloxacin Other 12/13/2018 Severe pain in legs and feet Evans Other 04/28/2025 Venlafaxine Other 04/28/2025 Medications * Be aware that medications may not be up to date on this document. Alwaysverify current medications with the patient. 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 Pulmonary nodules 11/19/2024 Chronic cough 11/19/2024 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 Other forms of systemic lupus erythematosus 11/2023 Rheumatoid arthritis involvi ng multiple sites with positive rheumatoid factor 05/16/2024 Allergic bronchitis 07/17/2011 Allergic rhinitis 05/25/2010 Tinnitus 05/25/2010 Encounters Date Type Department Care Team Description 06/04/2025 3:30 PM CDT Office Visit [facility] - Pulmonology [address] [place] [phone] Ashley Rodriguez MD Mycobacterium avium infection (HCC) (Primary Dx) 06/04/2025 Travel 06/01/2025 Telephone [facility] - Pulmonology [address] [place] [phone] Merlin RachellDO Appointment 04/28/2025 1:00 PM CDT Office Visit [facility] - Infectious Disease [address] [facility], [place] [phone] Rajendra Jeffrey MD 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 (AF LURIA, FLUZONE TRIVALENT; 6MO+) (IIV3) 05/20/2017,07/31/2014,09/11/2012 Covid [employer] primary monoval ent 12+ yr 0.3mL Purple cap 06/04/2021,11/26/2020,10/29/2020,2020 FLU VACCINE TRI IIV3 SPLIT I M (FLUVIRIN) 08/15/2013 INFLUENZA VACCINE, CELL CULT URE, QUADR. (FLUCELVAX QUADRIVALENT; 6MO+) (CCIIV4) 06/05/2022 INFLUENZA VACCINE, HIGH-DOSE , QUADR. (FLUZONE HIGH-DOSE QUADRIVALENT; 65Y+), 0.7 ML (HD-IIV4) 06/08/2023,06/09/2020 INFLUENZA VACCINE, HIGH-DOSE , TRIV. (FLUZONE HIGH-DOSE TRIVALENT; 65Y+) (HD-IIV3) 05/14/2024 INFLUENZA VACCINE, QUADR. (F LUZONE; FLULAVAL; FLUARIX; AFLURIA QUADRIVALENT; 6MO+), 0.5 ML (IIV4) 07/10/2018 RSV AREXVY 60YR+ 0.5ML 07/31/2023 TD (AGE 7-ADULT) 08/13/2004 Zoster Hzv Vacc Recombinant Inj Im 11/26/2023, Family History Medical History Relation Name Comments [...] Date Recorded Patient Health Questionnaire-2 Score 0 04/28/2025 Comments No Sex and Gender Information Value Date Recorded Sex Assigned at Not on file Legal Sex Female 2:45 PM CDT Gender Identity Not on file Sexual Orientation Not on file Last Filed Vital Signs Vital Sign Reading Time Taken Comments Blood Pressure 133/80 06/04/2025 2:58 PM CDT Pulse 68 06/04/2025 2:58 PM CDT Temperature 36.2 C (97.1 F) 04/28/2025 1:02 PM CDT Respiratory Rate 17 06/04/2025 2:58 PM CDT Oxygen Saturation 96% 06/04/2025 2:58 PM CDT Inhaled Oxygen Concentration - - Weight 67 kg (147 lb 9.6 oz) 06/04/2025 2:58 PM CDT Height 167.6 cm (5' 6) 06/04/2025 2:58 PM CDT Body Mass Index 23.82 06/04/2025 2:58 PM CDT Plan of Treatment Upcoming Encounters Date Type Department Care Team (Late st Contact Info) Description 07/28/2025 1:00 PM CELL REPAIRER Office Visit [facility] - Infectious Disease [address] [place] [phone] Rajendra Jeffrey MD [address] [place] [address] DIV OF INFECTIOUS DIS [address] [place] [phone] 09/02/2025 10:00 AM CELL REPAIRER Office Visit [facility] - Rheumatology [address] [place] [phone] Naina Duvall MD [address] [place] [address] [place] [phone] Health Maintenance Due Date Last Done Comments [...] 50+ (1 of 1 - PCV) 2002 DTAP/TDAP/TD VACCINES (2 - Td or Tdap) 08/13/2014 08/13/2004 MAMMOGRAM 08/11/2016 08/11/2014, 08/13, 05/09/2011 COVID-19 VACCINE ( season) 2025 06/04/2021, 11/26/2020, 10/29/2020, Additional history exists INFLUENZA VACCINE (#1) 2025 , 06/08/2023, 06/05/2022, Additional history exists Respiratory Syncytial Virus (RSV) Vaccine Pt: or over 60 yrs Completed 07/31/2023 ZOSTER VACCINE Completed 11/26/2023, 06/08/2023 DEPRESSION SCREENING Completed 09/25/2024 HEPATITIS B VACCINE [...] Procedure Name Priority Date/Time Associated Diagnosis Comments CARDIAC EKG ORDER 04/28/2025 from Last 3 Months Results * CARDIAC EKG ORDER (04/28/2025) 04/28/2025 Narrative 04/28/2025 Ordered by an unspecified provider. us Scanned Document CARDIAC SERVICES ORDERABLES Fin al Result from Last 3 Months Insurance [facility] MEDICARE Care Teams Auger Machine Offbearer Relationship Specialty Start Date End Date Shadia Talbert MD [address] [place] [address] PCP - General Family Medicine 05/16/24 Khoi Isaacs MD [address] [facility] [address] [place] [phone] Physician Pulmonary Disease 04/01/19
--- OUTSIDE RECORDS SUMMARY | 2025-06-12 09:45 | XMS_ITS | Encounter Summary ---
Author Organization [facility] Address [address] [place] [address] Care Team Providers Care Scenic Designer Name Role Phone Bobbi Baca MD Primary Care Provider [phone] Encounter Details Date Type Department Care Team (Late st Contact Info) Description 08/28/2011 Chart Note [facility] Therapy Services [address] [place] [address] Hailey Otto Physical Therapist Social History Tobacco Use Types Packs/Day Years Used Date Smoking Tobacco: Never Smokeless Tobacco: Never Alcohol Use Standard Drinks/Week Comments No 0 (1 standard drink = 0.6 oz pur e alcohol) Comments Unknown Sex and Gender Information Value Date Recorded Sex Assigned at Not on file Legal Sex Female 5:13 AM HOSPITAL ACCOUNT LIAISON Gender Identity Not on file Sexual Orientation Not on file documented as of this encounter Plan of Treatment Not on file documented as of this encounter Visit Diagnoses Not on filedocumented in this encounter Care Teams Scenic Designer Relationship Specialty Start Date End Date Bobbi Baca MD PCP - General Pediatrics 06/01/17 documented as of this encounter
--- OUTSIDE RECORDS SUMMARY | 2025-06-12 09:45 | XMS_ITS | Encounter Summary ---
Author Organization [facility] Address [address] [facility] [place] [address] Care Team Providers Care Customer Engagement Manager Name Role Phone Khoi Isaacs MD Unavailable Shadia Talbert MD Primary Care Provider [phone] Encounter Details Date Type Department Care Team (Late st Contact Info) Description 01/12/2025 Telephone [facility] - Pulmonology [address] [facility] [place] [phone] Rachell Boyer, DO [address] [place] [phone] Social History Tobacco Use Types Packs/Day Years [...] steroid on 12/26/24. Patient Call Back Number: [phone] documented in this encounter Plan of Treatment Upcoming Encounters Date Type Department Care Team (Late st Contact Info) Description 07/28/2025 1:00 PM STAFF OCCUPATIONAL THERAPIST Office Visit [facility] - Infectious Disease [address] [place] [address], [place] [address] Rajendra Jeffrey MD [address] [place] [address] OF INFECTIOUS DIS [address] [place] [phone] 09/02/2025 10:00 AM STAFF OCCUPATIONAL THERAPIST Office Visit [facility] - Rheumatology [address] [place] [phone] Naina Duvall MD [address] [place] [address] documented as of this encounter Visit Diagnoses Not on filedocumented in this encounter Care Teams Customer Engagement Manager Relationship Specialty Start Date End Date Shadia Talbert MD [address] [place] [address] PCP - General Family Medicine 05/16/24 Khoi Isaacs MD [address] [phone] Physician Pulmonary Disease 04/01/19 documented as of this encounter
--- OUTSIDE RECORDS SUMMARY | 2025-06-12 09:45 | XMS_ITS | Clinical Summary ---
Author Organization [facility] Address [address] [facility] [place] [address] Care Team Providers Care Fast Food Assistant Restaurant Manager Name Role Phone Bobbi Baca MD Primary Care Provider [phone] Allergies Active Allergy Reactions Criticality Noted Date Comments Prednisone Other (See Comments) 07/17/2011 [place] it leaving her body, nausea and muscle [...] on file Legal Sex Female 5:13 AM TRAINING AND QUALITY MANAGER Gender Identity Not on file Sexual Orientation Not on file Last Filed Vital Signs Vital Sign Reading Time Taken Comments Blood Pressure 106/63 06/22/2017 3:30 PM TRAINING AND QUALITY MANAGER Pulse 75 06/22/2017 3:30 PM TRAINING AND QUALITY MANAGER Temperature 36.2 C (97.1 F) 06/22/2017 10:44 AM TRAINING AND QUALITY MANAGER Respiratory Rate 18 06/22/2017 1:03 PM TRAINING AND QUALITY MANAGER Oxygen Saturation 95% 06/22/2017 3:30 PM TRAINING AND QUALITY MANAGER Inhaled Oxygen Concentration - - Weight 68 kg (150 lb) 06/20/2017 5:04 PM TRAINING AND QUALITY MANAGER Height 167.6 cm (5' 6) 06/20/2017 5:04 PM TRAINING AND QUALITY MANAGER Body Mass Index 24.21 06/20/2017 5:04 PM TRAINING AND QUALITY MANAGER Plan of Treatment Health Maintenance Due Date Last Done Comments PNEUMOCOCCAL VACCINE 50+ YEA RS (1 of 2 - PCV) 10/18/1971 FIT-DNA Q 3 years 1997 FIT/FOBT Q 1 year 1997 Flex Sig/CT Colonography Q 5 years 1997 RSV VACCINE (60+ or ) (1 - Risk 50-74 years 1-dose series) 2002 ZOSTER VACCINE (1 of 2) 2002 DTAP/TDAP/TD VACCINES (1 - Tdap) 08/14/2004 08/13/19 05 BREAST CANCER SCREENING 08/11/2015 08/11/20 14, 08/26/2012, 05/09/2011, Additional history exists COLORECTAL SCREENING 08/13/2016 08/13/2006 (Previously completed) Colorectal Cancer Screening 08/13/2016 OSTEOPOROSIS SCREENING 2017 INFLUENZA VACCINE (#1) 2025 7, 07/31/2014, 09/11/2012 Procedures Procedure Name Priority Date/Time Associated Diagnosis Comments MAMMO DIAGNOSTIC BILATERAL W OR WO CAD Routine 08/11/2014 1:19 PM TRAINING AND QUALITY MANAGER Lump of right breast Breast pain, right from Last 3 Months or Most Recently Relevant to Health Maintenance Results * MAMMO DIGITAL DIAG BILAT (08/11/2014 1:19 PM TRAINING AND QUALITY MANAGER) Anatomical Region Laterality Modality Breast Bilateral Mammography 08/11/2014 1:19 PM TRAINING AND QUALITY MANAGER Impressions 08/14/2014 7:46 AM TRAINING AND QUALITY MANAGER IMPRESSION: 1. No imaging correlate to the allegedly palpable abnormality in the right 6:00 position. 2. No mammographic evidence of malignancy. Routine followup is recommended. OVERALL ASSESSMENT: BI-RADS category 1 - Negative Dictated from [facility] 08/14/2014 7:46 AM TRAINING AND QUALITY MANAGER DIGITAL DIAGNOSTIC BILATERAL MAMMOGRAPHY WITH CAD AND [...] BI-RADS category 1 - Negative Dictated from [facility] Georgebetty McLittleton DO MAMMO ORDERABLES Fi nal Result from Last 3 Months or Most Recently Relevant to Health Maintenance Insurance [facility] OPTIONS PPO [id number] [facility] Address: [facility] [phone] [place] [address] Care Teams Fast Food Assistant Restaurant Manager Relationship Specialty Start Date End Date Bobbi Baca MD PCP - General Pediatrics 06/01/17
--- OUTSIDE RECORDS SUMMARY | 2025-06-12 09:45 | XMS_ITS | Patient Health Record ---
Author Organization [facility] Address [address] [facility] [address] [place] [address] Care Team Providers Care Vegetable Harvest Worker Name Role Phone InduBobbi Primary Care Provider [...] Status Risk Notes Problem Uncomplicated asthma (disorder) (163906894) Unspecified asthma, uncomplicated (J45.909) Active confirmed Problem Multiple nodules of lung (579763119) Lung nodules (R91.8) Active confirmed Plan Of Treatment Pending Test Test Name Order Date IGE Level 05/30/2017 PULMONARY FUNCTION TEST 05/30/2017 [facility] Allergen Panel 05/30/20 17 Insurance Providers Payer Name Payer Address Payer Phone Subscriber Number Group Number Insured Name Patient Relationship to Insured Coverage Start Date Coverage End Date [facility] [address] [address] [place], [place] [phone] [id number] Miguelina Cowan Self - patient is the insured Medical (General) History Medical History History ICD Code DJD Surgical History Surgery Date(Month/Year) Hystrectomy
== END 2025-06-12 09:15 | disposition home or self-care (01) ==
PROVIDERS: PCP Family Medicine Adolescent Medicine
DX: A31.0 Pulmonary mycobacterial infection (principal)
CPT/HCPCS: 71250